=== PATIENT | female | born 1965 | race Caucasian/White ===

== ENCOUNTER → 2016-10-10 | Outpatient (CLI) | payer OTHER ==
--- NOTE | 2016-10-10 10:27 | XR ---
EXAMINATION TYPE: XR chest 2V DATE OF EXAM: 10/10/2016 CLINICAL HISTORY: Asthma and chest tightness. TECHNIQUE: Frontal and lateral views of the chest are obtained. COMPARISON: None FINDINGS: There is no focal air space opacity, pleural effusion, or pneumothorax seen. The cardiac silhouette size is within normal limits. The osseous structures are intact. IMPRESSION: No acute cardiopulmonary process. No significant change from prior.
== END | disposition home or self-care (01) ==
LOC: RADXRMAIN 10:02
PROVIDERS: ATTEND Internal Medicine Infectious Disease
DX: J44.9 Chronic obstructive pulmonary disease, unspecified (principal)
CPT/HCPCS: 71020

== ENCOUNTER 2017-05-27 11:39 | Day surgery (SDC) | payer OTHER ==
[2017-05-25 09:26] VITALS: BMI 22.3
[~2017-05-27 11:39] MED LIST: HYDROmorphone 0.5 MG/0.5 ML SYRINGE IVP PRN; LACTATED RINGERS 1,000 ML IV SCH; ONDANSETRON 4 MG/2 ML VIAL IVP PRN; Pre Op ABX Message 1 EACH MISC MISCELLANE ONE
[2017-05-27 12:07] VITALS: TEMP 98.2
[2017-05-27] MEDS ORDERED: LIDOCAINE 1% 20 ML VIAL (10MG/ML) FOR IV START INTRADERMA ONE (12:15)
[2017-05-27] MEDS ORDERED: ONDANSETRON 4 MG/2 ML VIAL ONE ×2 (12:18→12:19)
[2017-05-27] MEDS ORDERED: MIDAZOLAM 2 MG/2 ML VIAL ONE ×2 (12:47→13:17)
[2017-05-27] MEDS ORDERED: MIDAZOLAM 2 MG/2 ML VIAL IVP ONE (12:50)
[2017-05-27] MEDS ORDERED: HYDROCORTISONE SUCCINATE 100 MG/2 ML VIAL IVP ONE (12:54)
[2017-05-27] MEDS ORDERED: diphenhydrAMINE 50 MG/ML 1 ML VIAL ONE (13:17)
[2017-05-27] MEDS ORDERED: LIDOCAINE 1% INJ 10MG/ML (20 ML MDV) ONE (13:17)
[2017-05-27] MEDS ORDERED: PROPOFOL 10 MG/ML 20 ML VIAL IV ONE (13:17)
[2017-05-27] MEDS ORDERED: fentaNYL (PF) 50 MCG/ML 2 ML AMP ONE (13:17)
[2017-05-27] MEDS ORDERED: ceFAZolin 1,000 MG VIAL IVPB ONE (13:29)
[2017-05-27] MEDS ORDERED: LIDOCAINE 1% INJ 10MG/ML (20 ML MDV) SQ ONE ×2 (13:35→13:57)
[2017-05-27 15:11] VITALS: BP 117/62; PULSE 85; RESP 18
--- NOTE | 2017-05-27 15:57 | FL ---
Fluoroscopy HISTORY: Port-A-Cath placement 24 seconds fluoroscopy time supplied to the referring clinician. 1 intraoperative C-arm image docume nts the procedure. See dictated report from surgery.
--- NOTE | 2017-05-27 16:28 | P.PCN ---
Date of Procedure: 05/27/17 Preoperative Diagnosis: Immune deficiency requiring frequent blood draws and infusions Postoperative Diagnosis: Same Procedure(s) Performed: Insertion of Port-A-Cath Anesthesia: MAC Surgeon: Jeremy Pearson Estimated Blood Loss (ml): 10 Pathology: none sent Condition: stable Disposition: PACU Indications for Procedure: The patient has an acquired immune deficiency and requires frequent blood draws and infusion therapy. Operative Findings: There were no significant abnormalities on placing the Port-A-Cath Description of Procedure: With the patient spine position, under benefit of IV sedation, we prepped and draped in standard fashion. We anesthetized 1% lidocaine. We accessed the right internal jugular using ultrasound guidance. We then tunneled the catheter for the port from an incision on the anterior right chest wall to a stab wound at the puncture site for the jugular. A dilator and sheath were placed over the guidewire in standard Seldinger fashion. The guidewire and dilator were removed. We placed the catheter through the sheath and removed the sheath. We positioned the catheter with its tip at this. Vena cava at the level of the upper right atrium. We had already made a pocket for the reservoir beneath her incision. We attached the reservoir to the catheter and secured the reservoir in the pocket with silk suture. There was good blood return and it was charged with a standard heparin solution. The incision was closed with Vicryl. Sterile dressings were applied. The patient tolerated the procedure well and was taken recovery area in stable condition.
== END 2017-05-27 15:57 | disposition home or self-care (01) ==
LOC: OR 11:39
PROVIDERS: ATTEND Thoracic Surgery (Cardiothoracic Vascular Surgery)
DX: D83.9 Common variable immunodeficiency, unspecified (principal); M79.7 Fibromyalgia; F90.1 Attention-deficit hyperactivity disorder, predominantly hyperactive type; F41.9 Anxiety disorder, unspecified; F32.9 Major depressive disorder, single episode, unspecified; M19.90 Unspecified osteoarthritis, unspecified site; K21.9 Gastro-esophageal reflux disease without esophagitis; J45.909 Unspecified asthma, uncomplicated; Z88.1 Allergy status to other antibiotic agents; Z88.6 Allergy status to analgesic agent; F17.210 Nicotine dependence, cigarettes, uncomplicated; Z79.1 Long term (current) use of non-steroidal anti-inflammatories (NSAID); Z79.51 Long term (current) use of inhaled steroids; Z79.899 Other long term (current) drug therapy
CPT/HCPCS: 77001; 36561; C1788; J2250; J1200; J1720; J2405; J0690; J2001; J3010; J2704

== ENCOUNTER 2018-01-16 18:41 | Observation (INO) | payer OTHER ==
[2018-01-16] MEDS ORDERED: SODIUM CHLORIDE 0.9% 500 ML 500 ML IV STA (19:13)
[2018-01-16] MEDS ORDERED: ASPIRIN 81 MG PO STA (19:13)
--- NOTE | 2018-01-16 19:17 | ED ---
Chest Pain HPI - General Chief Complaint: Chest Pain Stated Complaint: CHEST PAIN Time Seen by Provider: 01/16/18 18:52 Source: patient Mode of arrival: ambulatory Limitations: no limitations - History of Present Illness Initial Comments: Patient is a 52-year-old female presenting for chest pressure. She states that she has no past medical history of cardiac disease and that for the last 1.5 weeks, she has been having this constant chest pressure which does not radiate. She saw her family doctor and was told that it was likely secondary to GERD. She admits to some cough but no fevers or chills and states that she had infusion of IVIG on Thursday for CVID but denies any other infectious symptoms. She denies any abdominal pain, nausea/vomiting/diarrhea. - Related Data Home Medications Medication Instructions Recorded Confirmed Acetaminophen [Tylenol] 1,000 mg PO Q4-6H PRN 03/07/14 05/27/17 Albuterol Sulfate [Ventolin HFA] 1 - 2 puff INHALATION Q4-6H PRN 03/07/14 Fluticasone Propionate [Flovent 2 puff INHALATION HS 03/07/14 05/27/17 Hfa 220MCG] Naproxen Sodium [Aleve] 220 mg PO Q12HR PRN 04/12/14 05/25/17 ALPRAZolam [Xanax] 0.25 mg PO DAILY PRN 01/06/17 05/27/17 Cyanocobalamin [Vitamin B-12 1,000 mcg SQ Q14D 01/06/17 05/25/17 Injection] Dextroamphetamine/Amphetamine 10 mg PO DAILY PRN 01/06/17 05/27/17 [Adderall] Immune Globulin (Flebogamma) 0 gm IV Q30D 01/06/17 05/27/17 [Flebogamma Dif 10%] Lansoprazole [Prevacid] 30 mg PO QAM 01/06/17 05/25/17 Fluticasone Nasal [place] [Flonase 2 sprays INTRANASAL BID PRN 05/27/17 05/27/17 Nasal [place]] Allergies Allergy/AdvReac Type Severity Reaction Status Date / Time aspirin AdvReac stomach Verified 01/16/18 18:48 upset nitrofurantoin AdvReac Nausea & Verified 01/16/18 18:48 [From Macrobid] Vomiting nitrofurantoin AdvReac Nausea & Verified 01/16/18 18:48 macrocrystalline Vomiting [From Macrobid] Review of Systems ROS Statement: Those systems with pertinent positive or pertinent negative responses have been documented in the HPI. Constitutional: Negative for chills, fatigue and fever. HENT: Negative for congestion. Respiratory: Negative for chest tightness, and wheezing. Negative for cough. Positive for shortness of breath Cardiovascular: Negative for chest pain and palpitations. Positive for chest pressure Gastrointestinal: Negative for abdominal pain. Negative for abdominal distention , diarrhea, nausea and vomiting. Genitourinary: Negative for dysuria. Musculoskeletal: Negative for back pain, neck pain and neck stiffness. Skin: Negative for color change. Neurological: Negative for dizziness, speech difficulty, weakness and light- headedness. Psychiatric/Behavioral: Negative for agitation and confusion. Negative for anxiety ROS Other: All systems not noted in ROS Statement are negative. EKG Findings - EKG Comments: EKG Findings:: EKG shows sinus tachycardia with a rate of 117, SD interval 132, QRS 78, QTC 446. There are no significant ST depressions or elevations. Past Medical History Past Medical History: Asthma Additional Past Medical History / Comment(s): sensitiy between ribs and reflux, IBS,ALLERGIES, HEADACHES. FREQUENT SORES IN HER MOUTH., STATES PAIN IN NECK AND FEET,Common Variable Immune Deficiency,steroids Dec 2016 History of Any Multi-Drug Resistant Organisms: None Reported Past Surgical History: Hysterectomy, Tubal Ligation Additional Past Surgical History / Comment(s): SINUS SURG X2 , EGD , COLONOSCOPY ,goldie cataracts Past Anesthesia/Blood Transfusion Reactions: Motion Sickness Past Psychological History: ADD/ADHD, Anxiety, Depression Smoking Status: Current every day smoker Past Alcohol Use History: Occasional Past Drug Use History: None Reported - Past Family History Brother(s) Family Medical History: Cancer Additional Family Medical History / Comment(s): lung small cell Father Family Medical History: Vascular Disorder General Exam - General Exam Comments Initial Comments: Constitutional: Pt is oriented to person, place, and time. Pt appears well- developed and well-nourished. No distress. HENT: Head: Normocephalic and atraumatic. Eyes: EOM are normal. Neck: Normal range of motion. Neck supple. Cardiovascular: Tachycardia present, regular rhythm, S1 normal, S2 normal and normal heart sounds. Exam reveals no gallop and no friction rub. No murmur heard. Pulmonary/Chest: Effort normal and breath sounds normal. No tachypnea and no bradypnea. No respiratory distress. No wheezes or rales noted. Abdominal: Soft. Bowel sounds are normal. Pt exhibits no shifting dullness, no distension, no pulsatile liver, no fluid wave, no abdominal bruit and no ascites. There is no tenderness. There is no rigidity, no rebound, no guarding, no tenderness at McBurney's point and negative Sims's sign. Musculoskeletal: Normal range of motion. Neurological: Pt is alert and oriented to person, place, and time. No cranial nerve deficit. Skin: Skin is warm and dry. No rash noted. Pt is not diaphoretic. No erythema. No pallor. Psychiatric: Pt has a normal mood and affect. Pt behavior is normal. Thought content normal. Limitations: no limitations Course Vital Signs 01/16/18 01/16/18 01/16/18 18:45 19:26 19:36 Temperature 98.7 F Pulse Rate 150 H 120 H 120 H Respiratory 22 16 Rate Blood Pressure 153/91 132/70 O2 Sat by Pulse 99 99 Oximetry 01/16/18 01/16/18 20:34 21:35 Temperature Pulse Rate 100 92 Respiratory 18 16 Rate Blood Pressure 121/61 121/76 O2 Sat by Pulse 98 98 Oximetry Chest Pain MDM - MDM Laboratory studies showed that a letter lites were relatively within normal limits and there is no abnormal hemoglobin levels. Cardiac evaluation showed the troponin was negative and BNP also was not elevated. Because the patient was tachycardic upon evaluation, CT PE study was completed and negative for PE. However, the patient has significant risk factors including hypertension, smoking, hyperlipidemia and therefore it was felt that it was appropriate that the patient be placed in observation for evaluation and further treatment.Explained all labs and diagnostic test results and that we will admit patient to hospital. Pt is agreeable to plan and case has been discussed with Dr. Peterson and they agree to accept the pt. Disposition Clinical Impression: Chest pain, Tachycardia Disposition: ADMITTED IP TO THIS HOSP Condition: Good Instructions: Chest Pain (ED) Referrals: Polo Rico MD [Primary Care Provider] - 1-2 days Decision to Admit Reason: Admit from EC Decision Date: 01/16/18 Decision Time: 22:02
[2018-01-16 19:47] LABS: Anisocytosis Slight; Basophils % (A) 1 %; Eosinophils # (A) 0.1 k/uL (0-0.7); Eosinophils % (A) 2 %; HGB 12.1 gm/dL (11.4-16.0); Lymphocytes # (A) 1.8 k/uL (1.0-4.8); Lymphocytes % (A) 42 %; MCH 27.3 pg (25.0-35.0); MCHC 32.7 g/dL (31.0-37.0); MCV 83.6 fL (80.0-100.0); Mean Platelet Volume 6.5; Monocytes # (A) 0.2 k/uL (0-1.0); Monocytes % (A) 6 %; Neutrophils # (A) 2.1 k/uL (1.3-7.7); Neutrophils % (A) 48 %; Platelet Count 318 k/uL (150-450); RBC 4.43 m/uL (3.80-5.40); RDW 16.8 % (11.5-15.5); WBC 4.3 k/uL (3.8-10.6)
--- NOTE | 2018-01-16 19:53 | XR ---
EXAMINATION TYPE: XR chest 2V DATE OF EXAM: 01/16/2018 COMPARISON: Chest radiograph 10/10/2016 HISTORY: Dyspnea and chest pain TECHNIQUE: Frontal and lateral views of the chest are obtained. FINDINGS: There is no focal air space opacity, pleural effusion, or pneumothorax seen. The cardiac silhouette size is within normal limits. Right internal jugular vein port is identified with the ti p projecting at the SVC right atrial junction The osseous structures are intact. IMPRESSION: 1. No acute cardiopulmonary process. 2. Appropriate position right IJ port.
[2018-01-16 19:59] LABS: Partial Thromboplastin Time 22.2 sec (22.0-30.0); Prothrombin Time 9.5 sec (9.0-12.0)
[2018-01-16 20:03] LABS: ALT 27 U/L (9-52); AST 32 U/L (14-36); Albumin 4.7 g/dL (3.5-5.0); Alkaline Phosphatase 74 U/L (38-126); Anion Gap 11 mmol/L; Blood Urea Nitrogen 6 mg/dL (7-17); Calcium 10.2 mg/dL (8.4-10.2); Carbon Dioxide 22 mmol/L (22-30); Chloride 106 mmol/L (98-107); Glucose 104 mg/dL (74-99); Sodium 139 mmol/L (137-145); Total Bilirubin 0.7 mg/dL (0.2-1.3); Total Protein 8.4 g/dL (6.3-8.2)
--- NOTE | 2018-01-16 20:15 | CT ---
EXAMINATION TYPE: CT chest angio for PE DATE OF EXAM: 01/16/2018 COMPARISON: Chest radiograph 10/10/2016 HISTORY: chest pain and tightness, SOB CT DLP: 181.9 mGycm. Automated Exposure Control for Dose Reduction was Utilized. CONTRAST: CTA scan of the thorax is performed with IV Contrast, patient injected with 73 mL of Isovue 370, pulm onary embolism protocol. MIP Images are created on CT scanner and reviewed. FINDINGS: LUNGS: The lungs are hyperinflated and hyperlucent but grossly clear. No concerning parenchymal mass or nodule identified. There is no pleural effusion or pneumothorax seen. The tracheobronchial tree is patent. MEDIASTINUM: There is satisfactory enhancement of the pulmonary artery and its branches, there is no CT evidence for pulmonary embolism. There are no greater than 1 cm hilar or mediastinal lymph nodes. No cardiomegaly or pericardial effusion is seen. Ascending and descending thoracic aorta within no rmal limits. OTHER: No additional significant abnormality is seen. IMPRESSION: 1. No pulmonary artery embolism. 2. Emphysematous changes.
[2018-01-16] MEDS ORDERED: NALOXONE 0.4 MG/ML 1 ML VIAL IV PRN (22:06)
[2018-01-16 23:00] VITALS: BMI 21.1
[2018-01-16] MEDS ORDERED: ACETAMINOPHEN TAB 325 MG TAB PO PRN (23:52)
[2018-01-17] MEDS: METOPROLOL TARTRATE 50 MG TAB PO SCH ×2 (00:22→10:00)
[2018-01-17] MEDS: SIMETHICONE 80 MG CHEWABLE PO PRN ×2 (00:45→09:12)
[2018-01-17] MEDS ORDERED: ACETAMINOPHEN TAB 500 MG TAB PO PRN (09:42)
[2018-01-17] MEDS ORDERED: METOPROLOL SUCCINATE (ER) 25 MG TAB.ER.24H PO SCH (09:45)
--- NOTE | 2018-01-17 12:08 | DS ---
DISCHARGE SUMMARY ATTENDING PHYSICIAN: Dr. Alise Peterson. DATE OF ADMISSION: 01/16/2018. DATE OF DISCHARGE: 01/17/2018. PRINCIPAL DIAGNOSES: 1. Atypical chest pain. 2. Tachycardia. 3. Chronic anxiety disorder. 4. Fibromyalgia. 5. Tobacco dependency. 6. History of mild intermittent bronchial asthma. HISTORY OF PRESENT ILLNESS: This 52-year-old was admitted to the hospital with complaints of chest pain for the past at least about 2 weeks. The patient has been seen in the outpatient by her physician. The patient has had similar symptoms in the past and had been seen by the bobbin hauler. He had recommended medications, which she has not been taking. The patient also has a history of fibromyalgia and chronic anxiety. She does feel that the symptoms are probably more related to her anxiety. Advised to address anxiety with her therapist as well as a primary care physician. The patient does follow with Dr. Moreno for an immunoglobulin infusions for chronic variable immunodeficiency. The patient's general condition post hospitalization remained stable. Cardiac rhythm remained sinus with good rate control. She refused to take any beta denice, which was advised. She states she is ALLERGIC TO ASPIRIN. The patient having remained stable with two negative troponins and no further symptoms and will be discharged home to be followed up on outpatient. DISCHARGE MEDICATIONS: Include: metoprolol succinate 25 mg daily, Albuterol sulfate p.r.n. 2 puffs q.i.d., Flovent 220 two puffs at bedtime, Tylenol 1000 mg q.4 p.r.n., Aleve 220 mg p.o. q.12, Adderall 10 mg as prior to admission. Xanax as prior to admission which is quarter pill as needed. Discussed with patient that this is not an appropriate medications and to continue that dosing. Xanax 0.25 mg p.r.n. b.i.d. Prevacid 30 mg b.i.d. Continue with vitamin B12 injections. Flonase. The patient to continue with her gamma infusions. The patient condition stable at the time of discharge. Patient counseled regarding smoking and importance of quitting smoking and alcohol. MMODL / IJN: [id number] /
--- NOTE | 2018-01-17 12:08 | HP ---
HISTORY AND PHYSICAL ATTENDING PHYSICIAN: Dr. Violette Peterson for Dr. Rico. CHIEF COMPLAINT: Chest pain. HISTORY OF PRESENT ILLNESS: A 52-year-old female presents to the hospital with complaint of chest pain for the past 2 weeks. The pain is off and on. Describes it as a tightness across the chest. It is not associated with any shortness of breath or diaphoresis. She does have palpitations off and on. This is a chronic issue. She says she normally her heart rate runs about 90 and at times it does go rapid. She has seen a first aid nurse about a year ago. The patient was prescribed medications for the tachycardia, but she has not taken any of those medications. The patient has associated history of chronic anxiety, alcohol periodically, and smoking. No history of any major cardiac events in the past. Patient has history of bronchial asthma, fibromyalgia and chronic anxiety. The patient has a history of chronic variable immune deficiency. The patient receives IVIG on a regular basis as an outpatient. PAST MEDICAL HISTORY: As mentioned above, history of chronic variable immune deficiency, bronchial asthma, chronic anxiety. PAST SURGICAL HISTORY: Total hysterectomy, tubal ligation, Port-A-Cath placement. PERSONAL HISTORY: Patient is a smoker off and on. She has back smoking for the past few months, at least half-pack a day. Alcohol periodically. ALLERGIES: ASPIRIN, NITROFURANTOIN. MEDICATIONS: 1. Naproxen. 2. Prevacid 30 mg b.i.d. 3. Immunoglobulin 10 g IV every month, 2 puffs at bedtime. 4. Flonase nasal spray 2 puffs b.i.d. p.r.n. basis. 5. Adderall 10 mg quarter tablet p.r.n. 6. Vitamin B12 injection every 2 weeks. 7. Albuterol p.r.n. inhaler. 8. Tylenol. 9. Xanax 0.25 mg p.r.n. SOCIAL HISTORY: , lives with spouse. FAMILY HISTORY: Noncontributory. REVIEW OF SYSTEMS: NEURO: Denies any headaches or dizziness. No double vision or blurred vision. No symptoms of TIA syncope or seizures. PSYCH: History of chronic anxiety. CARDIAC: Denies chest pain, angina, palpitations. RESPIRATORY: Denies shortness of breath, cough, hemoptysis. GI: Denies any nausea, vomiting, abdominal pain, diarrhea, constipation, hematochezia, melena. : No symptoms of dysuria, hematuria, urgency, frequency. EXTREMITIES: No pain or edema. CONSTITUTIONAL: No fevers or chills. PHYSICAL EXAMINATION: Pleasant female present. No distress. VITAL SIGNS: Temperature 98, pulse 85, respirations 18, blood pressure 106/60, pulse ox 98% on room air. HEENT: Normocephalic. NECK: Supple. No JVD. CHEST: Clear to auscultation and percussion. CARDIAC: Normal S1, S2 with no gallops, murmurs, rubs. ABDOMEN: Soft bowel sounds present. EXTREMITIES: No edema. Good pulses both upper and lower extremities. NEUROLOGIC: Awake, alert, oriented x3 with well-coordinated movements. LABORATORY ASSESSMENT: Normal CBC, PT, INR, electrolytes. Random glucose of 104, total protein 8.4, albumin 4.7. Troponin is negative x2. EKGs reveal sinus tachycardia, rate 117. CT scan of the chest did not reveal any evidence of PE. ASSESSMENT: 1. Chest pain, atypical. 2. History of mild intermittent bronchial asthma. 3. Chronic anxiety disorder. 4. Fibromyalgia. PLAN: The patient is admitted for observation as the patient was tachycardic when she came to the hospital. Despite a significant tachycardia, patient has had no elevation of troponins, which would indicate the patient's chest pain is less likely to be of cardiac origin. The patient is recommended follow up with first aid nurse and primary care physician. MMODL / KERRYN: [id number] /
[2018-01-17 12:14] VITALS: BP 97/66; PULSE 84; RESP 16; TEMP 98.6
== END 2018-01-17 12:25 | disposition home or self-care (01) ==
LOC: EC 18:41 → 1SOBS 22:04
PROVIDERS: ADMIT Internal Medicine; ATTEND Internal Medicine
DX: R07.89 Other chest pain (principal); R00.0 Tachycardia, unspecified; R00.2 Palpitations; R05 Cough; F41.9 Anxiety disorder, unspecified; M79.7 Fibromyalgia; I10 Essential (primary) hypertension; F17.210 Nicotine dependence, cigarettes, uncomplicated; J45.20 Mild intermittent asthma, uncomplicated; K21.9 Gastro-esophageal reflux disease without esophagitis; D83.9 Common variable immunodeficiency, unspecified; F32.9 Major depressive disorder, single episode, unspecified; F90.9 Attention-deficit hyperactivity disorder, unspecified type; Z79.51 Long term (current) use of inhaled steroids; Z79.899 Other long term (current) drug therapy; Z88.1 Allergy status to other antibiotic agents; Z88.6 Allergy status to analgesic agent; Z80.1 Family history of malignant neoplasm of trachea, bronchus and lung; Z82.49 Family history of ischemic heart disease and other diseases of the circulatory system
CPT/HCPCS: 96360; 99285; 36415; 93005; 83880; 80053; 83735; 84484 ×2; 85025; 85610; 85730; 71046; 71275; G0378 ×2; Q9967

== ENCOUNTER → 2018-10-27 | Outpatient (CLI) | payer OTHER ==
--- NOTE | 2018-10-28 11:39 | MM ---
Reason for exam: screening (asymptomatic). Last mammogram was performed 2 years and 8 months ago. History: Patient is postmenopausal. Family history of breast cancer in paternal grandmother and breast cancer in maternal grandmother. Benign stereotactic core biopsy of the right breast, November 08, 2003. Core biopsy of the right breast. Took hormonal contraceptives for 3 years beginning at age 16. Physical Findings: A clinical breast exam by your physician is recommended on an annual basis and results should be correlated with mammographic findings. MG 3D Screening Mammo W/Cad Bilateral CC and MLO view(s) were taken. Prior study comparison: February 21, 2016, bilateral MG 3d screening mammo w/cad. October 01, 2012, bilateral digital screening mammo w/CAD. The breast tissue is heterogeneously dense. This may lower the sensitivity of mammography. There are benign appearing round calcifications in the left breast. Previous mammotome biopsy in the right breast. Right axillary port partially imaged. ASSESSMENT: Benign, BI-RAD 2 RECOMMENDATION: Routine screening mammogram of both breasts in 1 year.
== END | disposition home or self-care (01) ==
LOC: RADMAMWWP 13:06
PROVIDERS: ATTEND Obstetrics & Gynecology
DX: Z12.31 Encounter for screening mammogram for malignant neoplasm of breast (principal)
CPT/HCPCS: 77063; 77067

== ENCOUNTER → 2018-11-02 | Outpatient (CLI) | payer OTHER ==
--- NOTE | 2018-11-03 20:51 | BD ---
EXAMINATION TYPE: Axial Bone Density DATE OF EXAM: 11/02/2018 COMPARISON: NONE CLINICAL HISTORY: 53 YR OLD FEMALE....ICD-10 CODE: Z78.0 POST MENOPAUSAL Height: 61 Weight: 113 FRAX RISK QUESTIONS: Family History (Parent hip fracture): YES Glucocorticoids (More than 3mos): YES (Ex: prednisone, prednisolone, methylprednisolone, dexamethasone, and hydrocortisone). Current Tobacco Use: YES RISK FACTORS HISTORY OF: Family History of Osteoporosis: YES HER FATHER WITH SPINAL FXS Active: YES Diet low in dairy products/other sources of calcium: YES Postmenopausal woman: PARTIAL HYST, HORMONAL REBECCA AT ABOUT 48 MEDICATIONS: Prednisone or other steroids: VENTOLIN, FLOVENT, PREDNISONE PRN, FOR ASTHMA, FOR LIFE Thyroid Medications: HAS LOW THYROID, BUT NO MEDS FOR IT Additional Medications: HUMAN IMMUNOGLOBULIN, BP MEDS, XANAX PRN, CYMBALTA, REFLUX MEDS, ADDERALL, Additional History: CVID, FIBROMYALGIA, ASTHMA, EXAM MEASUREMENTS: Bone mineral densitometry was performed using the MuciMed System. Bone mineral density as measured about the Lumbar spine is: ----- L1-L4(G/cm2): 1.037 T Score Values are as follows: ----- L1: -1.2 ----- L2: -1.6 ----- L3: -1.3 ----- L4: -1.0 ----- L1-L4: -1.2 Bone mineral density BASELINE DEXA STUDY Bone mineral density about the R hip (g/cm2): 0.855 Bone mineral density about the L hip (g/cm2): 0.903 T Score values are as follows: -----R Neck: -1.4 -----L Neck: -1.2 -----R Total: -1.2 -----L Total: -0.8 Bone mineral density BASELINE DEXA STUDY FRAX%s: THERE IS A 18.5% CHANCE FOR A MAJOR OSTEOPOROTIC FX AND A 1.6% FOR HIP.....PROBABILITY FOR FX IN 10 YRS TIME IMPRESSION: Osteopenia (T Score between -2.5 and -1). There is slightly increased risk of fracture and the patient may be considered for treatment. Re-Screen 2-5 years. NOTE: T-SCORE=SD OF THE YOUNG ADULT MEAN.
== END | disposition home or self-care (01) ==
LOC: RADBDWWP 16:21
PROVIDERS: ATTEND Internal Medicine
DX: M85.80 Other specified disorders of bone density and structure, unspecified site (principal); Z78.0 Asymptomatic menopausal state
CPT/HCPCS: 77080

== ENCOUNTER 2019-01-05 08:59 | Day surgery (SDC) | payer OTHER ==
[2019-01-03 13:35] VITALS: BMI 21.1
[~2019-01-05 08:59] MED LIST changes: -HYDROmorphone 0.5 MG/0.5 ML SYRINGE IVP PRN; +LIDOCAINE 1% 20 ML VIAL (10MG/ML) FOR IV START INTRADERMA PRN; -ONDANSETRON 4 MG/2 ML VIAL IVP PRN; -Pre Op ABX Message 1 EACH MISC MISCELLANE ONE
[2019-01-05 09:37] VITALS: RESP 16; TEMP 97.8
[2019-01-05] MEDS ORDERED: PROPOFOL 10 MG/ML 20 ML VIAL IV ONE (10:07)
--- NOTE | 2019-01-05 10:25 | P.PCN ---
Date of Procedure: 01/05/19 Procedure(s) Performed: Brief history: Patient is a pleasant 53-year-old white female scheduled for an elective upper endoscopy as well as colonoscopy as a part of evaluation of GERD/and deficiency anemia. Procedure performed: Esophagogastroduodenoscopy with biopsy Colonoscopy with snare polypectomy. Preoperative diagnosis: GERD/iron deficiency anemia Anesthesia: MAC Procedure: After informed consent was obtained from the patient was brought into the endoscopy unit and IV sedation was administered by anesthesia under continuous monitoring. Initially upper endoscopy was done. The Olympus GF 160 video endoscope was inserted inserted into the mouth and esophagus intubated without any difficulty and was gradually advanced into the stomach and duodenum and carefully examined. The bulb and second part of the duodenum appeared normal. The scope was then withdrawn into the stomach adequately insufflated with air and upon careful examination the antrum and body, cardia and fundus appeared normal. The scope was then withdrawn into the esophagus. The GE junction was located at 40 cm to the incisors. It appeared regular with no erythema erosions or ulcerations. Rest of the esophagus appeared normal. Patient tolerated the procedure well. At this time the patient continued to remain sedation. Initial digital rectal examination was normal. Olympus CF 160 video colonoscope was then inserted into the rectum and gradually advanced to the cecum without any difficulty. Careful examination was performed as the scope was gradually being withdrawn. The prep was excellent. The cecum, ascending colon, appeared normal. In the transverse colon there was a 5 mm sessile polyp that was removed by snare polypectomy. Rest of the transverse colon, descending colon, sigmoid colon and rectum appeared normal. Retroflexion was performed in the rectum and no lesions were noted. Patient tolerated the procedure well. Impression: 1. Upper endoscopy revealed minimal antral gastritis 2.. Colonoscopy revealed a 5 mm sessile transverse colon polyp status post snare polypectomy Recommendations: Findings of this examination were discussed with the patient as well as her family. She was advised to follow with the biopsy results. If the biopsy shows an adenoma, she can have a repeat colonoscopy in 5 years.
[2019-01-05 10:43] VITALS: BP 133/76; PULSE 85
== END 2019-01-05 11:09 | disposition home or self-care (01) ==
LOC: ORWHC2ENDO 08:59
PROVIDERS: ATTEND Internal Medicine Gastroenterology
DX: K31.9 Disease of stomach and duodenum, unspecified (principal); D12.2 Benign neoplasm of ascending colon; D12.3 Benign neoplasm of transverse colon; K21.9 Gastro-esophageal reflux disease without esophagitis; D50.9 Iron deficiency anemia, unspecified; I47.1 Supraventricular tachycardia; Z98.51 Tubal ligation status; Z90.710 Acquired absence of both cervix and uterus; Z79.899 Other long term (current) drug therapy; Z88.6 Allergy status to analgesic agent; Z88.1 Allergy status to other antibiotic agents
CPT/HCPCS: 88305; 45385; 43239; J2704

== ENCOUNTER → 2019-01-20 | Outpatient (CLI) | payer OTHER ==
--- NOTE | 2019-01-20 18:51 | FL ---
EXAMINATION TYPE: FL small bowel follow through DATE OF EXAM: 01/20/2019 CLINICAL HISTORY: 53-year-old female iron deficiency anemia. Patient with history of CVID and negativ e recent EGD and colonoscopy. TECHNIQUE: A single contrast small bowel follow through is performed utilizing barium. Total fluoroscopy time: 1 minute 21 seconds. Total images: 24. COMPARISON: None FINDINGS: Systems Qa Analyst image of the abdomen shows no gross abnormality. There is nonobstructive bowel gas pattern with mild stool in the right side of the abdomen. The small bowel study shows normal transit to the colon in less than 120 minutes. There is a normal mucosal fold pattern throughout the majority of the small bowel. The terminal ileum was spotted and s hows tiny nodular filling defects. There is no evidence of any stricture. IMPRESSION: 1. Normal small bowel transit time of 2 hours. 2. Tiny nodular filling defects/nodular folds at the terminal ileum. Findings could reflect fecal ref lux across the ileocecal valve allowing for this mottled appearance. Alternatively, consideration can be given to lymphoid hyperplasia, IBD, and infectious ileitis. Further clinical correlation recommen ded. 3. The remainder of the small bowel has a normal appearance.
== END | disposition home or self-care (01) ==
LOC: RADFLMAIN 08:00
PROVIDERS: ATTEND Internal Medicine Gastroenterology
DX: K58.9 Irritable bowel syndrome, unspecified (principal); A09 Infectious gastroenteritis and colitis, unspecified; R59.0 Localized enlarged lymph nodes
CPT/HCPCS: 74250

== ENCOUNTER → 2019-05-20 | Outpatient (CLI) | payer OTHER ==
--- NOTE | 2019-05-20 16:50 | CT ---
EXAMINATION TYPE: CT abdomen pelvis w con DATE OF EXAM: 05/20/2019 COMPARISON: CT 01/06/2014 HISTORY: Anemia. CT DLP: 580 mGycm Automated exposure control for dose reduction was used. TECHNIQUE: Helical acquisition of images from the lung bases through the pelvis have been completed. CONTRAST: Performed with Oral Contrast and with IV Contrast, patient injected with 100ml mL of Isovue 300. FINDINGS: LUNG BASES: No significant abnormality is appreciated. AORTA: No significant abnormality is appreciated. LIVER/GB: No significant abnormality is appreciated. PANCREAS: No significant abnormality is seen. SPLEEN: No significant abnormality is seen. ADRENALS: No significant abnormality is seen. KIDNEYS: No significant abnormality is seen. REPRODUCTIVE ORGANS: Uterus is not seen, adnexal structures thought present along the pelvic sidewall s similar to prior. BOWEL: No significant abnormality is seen. Contrast has not coursed into the colon, has reached the cecum only FREE AIR: No Free Air visible. ASCITES: None visible. PELVIC ADENOPATHY: None visualized. RETROPERITONEAL ADENOPATHY: No Retroperitoneal Adenopathy visible. URINARY BLADDER: No significant abnormality is seen. OSSEOUS STRUCTURES: No significant abnormality is seen. IMPRESSION: POSTOP CHANGE. DIFFICULT TO EXCLUDE A MUCOSAL LESION WITHIN THE COLON.
== END | disposition home or self-care (01) ==
LOC: RADCTMAIN 13:47
PROVIDERS: ATTEND Internal Medicine Hematology & Oncology
DX: D50.9 Iron deficiency anemia, unspecified (principal); Z98.890 Other specified postprocedural states
CPT/HCPCS: 74177; Q9967

== ENCOUNTER → 2019-09-09 | Outpatient (CLI) | payer OTHER ==
--- NOTE | 2019-09-09 12:15 | CT ---
EXAMINATION TYPE: CT angio chest DATE OF EXAM: 09/09/2019 COMPARISON: None HISTORY: 54-year-old female Cough, short of breath, chest pains TECHNIQUE: Contiguous axial scanning of the chest performed with IV Contrast, patient injected with 1 00, wasted 41 mL of Isovue 370. Coronal/sagittal MIP reconstructions performed. CT DLP: 128 mGycm Automated exposure control for dose reduction was used. FINDINGS: Right anterior chest wall injection port with catheter tip is obscured by the dense contrast bolus. Heart normal size of pericardial effusion. No flattening of interventricular septum or reflux of cont rast into the hepatic veins. Scattered LAD and circumflex artery calcifications are demonstrated. Aorta normal caliber with conventional arch was a branching anatomy and mild atherosclerotic calcific ations at the great vessel origins. Borderline size 9 mm left tracheobronchial angle lymph node. No thoracic lymphadenopathy by CT size c riteria. Satisfactory opacification of the pulmonary arterial system. There is central linear filling defect within the right upper lobe are pulmonary artery, axial image 63 and coronal series 10 image 53 and 54. No other pulmonary emboli are identified. Biapical pleural-parenchymal scarring. Minimal emphysematous change at the apices and a few scattered emphysematous cysts elsewhere in the lungs. No consolidation or pleural effusion. Visualized upper abdomen shows no gross abnormality. Bones: Moderate degenerative disc disease midthoracic spine. IMPRESSION: 1. LINEAR CENTRAL FILLING DEFECT WITHIN THE RIGHT UPPER LOBAR PULMONARY ARTERY SUGGESTIVE OF A SOLITA RY PULMONARY EMBOLUS. NO RIGHT HEART STRAIN. 2. COPD WITH MILD EMPHYSEMA. The air quality technician will call Dr. Julio's office regarding the critical findings immediately following this d ictation.
== END | disposition home or self-care (01) ==
LOC: RADCTMAIN 11:18
PROVIDERS: ATTEND Family Medicine
DX: J43.9 Emphysema, unspecified (principal); I28.8 Other diseases of pulmonary vessels; R07.9 Chest pain, unspecified; R06.02 Shortness of breath
CPT/HCPCS: 71275; Q9967

== ENCOUNTER → 2019-09-12 | Outpatient (CLI) | payer OTHER | END | disposition home or self-care (01) | LOC: LABWHC1 06:47 | PROVIDERS: ATTEND Family Medicine | DX: R05 Cough (principal); R06.02 Shortness of breath ==

== ENCOUNTER → 2019-10-06 | Outpatient (CLI) | payer OTHER ==
--- NOTE | 2019-10-06 09:19 | US ---
EXAMINATION TYPE: US abdomen complete DATE OF EXAM: 10/06/2019 COMPARISON: CT 05/20/2019 CLINICAL HISTORY: R14.0 abd distention, R22.42 left leg swelling. EXAM MEASUREMENTS: Liver Length: 15.7 cm Gallbladder Wall: 0.1 cm CBD: 0.2 cm Spleen: 10.5 cm Right Kidney: 10.2 x 3.2 x 3.9 cm Left Kidney: 11.6 x 4.0 x 4.5 cm Pancreas: Obscured by bowel gas, visualized portions appear wnl Liver: wnl Gallbladder: wnl Evidence for sonographic Sims's sign: No CBD: wnl Spleen: wnl Right Kidney: No hydronephrosis or masses seen Left Kidney: No hydronephrosis or masses seen Upper IVC: wnl Abd Aorta: wnl There is no ascites. The liver is homogenous. The intrahepatic portion of the IVC and proximal abdominal aorta are within normal limits. There is no evidence of cholelithiasis. Common bile duct is unremarkable. The visu alized portions of the pancreas are homogenous. The spleen is unremarkable. Kidneys are symmetric a nd free of hydronephrosis, cortical medullary differentiation is maintained. No renal lesions are se en. IMPRESSION: No abnormality evident
--- NOTE | 2019-10-06 09:22 | US ---
EXAMINATION TYPE: US venous doppler duplex LE DATE OF EXAM: 10/06/2019 8:50 AM COMPARISON: NONE CLINICAL HISTORY: R14.0 abd distention, R22.42 left leg swelling. Pulmonary embolism, patient taking blood thinners SIDE PERFORMED: Bilateral TECHNIQUE: The lower extremity deep venous system is examined utilizing real time linear array sonog agueda with graded compression, doppler sonography and color-flow sonography. VESSELS IMAGED: External Iliac Vein (EIV) Common Femoral Vein Deep Femoral Vein Greater Saphenous Vein * Femoral Vein Popliteal Vein Small Saphenous Vein * Proximal Calf Veins (* superficial vessels) There is normal flow, compressibility, vascular waveforms Right Leg: Negative for DVT Left Leg: Negative for DVT IMPRESSION: No evident deep venous thrombosis at or above the knees..
== END | disposition home or self-care (01) ==
LOC: RADUSWWP 08:13
PROVIDERS: ATTEND Internal Medicine Hematology & Oncology
DX: R14.0 Abdominal distension (gaseous) (principal); R22.42 Localized swelling, mass and lump, left lower limb
CPT/HCPCS: 76700; 93970

== ENCOUNTER → 2019-10-31 | Outpatient (CLI) | payer OTHER ==
--- NOTE | 2019-10-31 12:29 | XR ---
EXAMINATION TYPE: XR chest 2V DATE OF EXAM: 10/31/2019 COMPARISON: 01/16/2018 HISTORY: 54-year-old female cough and wheezing. D50.9, D83.9, J45.909, R00.0 TECHNIQUE: Frontal and lateral views FINDINGS: The cardiomediastinal silhouette, aorta, and pulmonary vasculature are within normal limits. Mild hyp erinflation. No consolidation or pleural effusion. Right anterior chest wall injection port with cath eter tip at the lower SVC. IMPRESSION: COPD. No acute process seen.
== END | disposition home or self-care (01) ==
LOC: RADXRMAIN 12:05
PROVIDERS: ATTEND Nurse Practitioner Adult Health
DX: J44.9 Chronic obstructive pulmonary disease, unspecified (principal); D50.9 Iron deficiency anemia, unspecified; D83.9 Common variable immunodeficiency, unspecified
CPT/HCPCS: 71046

== ENCOUNTER 2019-11-06 20:48 | Emergency (ER) | payer OTHER ==
[2019-11-06 21:18] VITALS: BP 115/69; PULSE 95; RESP 18; TEMP 98.1
[2019-11-06] MEDS ORDERED: DIPH,PERTUS(ACELL)TETVAC-LF 0.5 ML VIAL IM ONE (21:45)
--- NOTE | 2019-11-06 22:07 | ED ---
General Adult HPI - General Chief complaint: Head Injury Stated complaint: Fall,Head injury Time Seen by Provider: 11/06/19 21:25 Source: patient, family Mode of arrival: ambulatory - History of Present Illness Initial comments: 54-year-old female currently taking Xarelto presents to the emergency room for chief complaint of head injury. Patient reports she was walking up some basement stairs. States her mother was walking ahead of her carrying a box of items. Patient reports that a heavy picture frame fell out of the box and hit her in the head. No loss of consciousness. Patient is a small laceration. Patient is not up-to-date on tetanus. Patient does report there is pain over the area of laceration. Patient has no other complaints at this time including shortness of breath, chest pain, abdominal pain, nausea or vomiting, headache, or visual changes. - Related Data Home Medications Medication Instructions Recorded Confirmed Albuterol Sulfate [Ventolin HFA] 1 - 2 puff INHALATION RT-Q4H PRN 03/07/14 01/05/19 Fluticasone Propionate [Flovent 2 puff INHALATION RT-HS 03/07/14 01/05/19 Hfa 220 mcg] Cyanocobalamin [Vitamin B-12 1,000 mcg SQ Q14D 01/06/17 01/05/19 Injection] Immune Globulin (Flebogamma) 10 gm IV Q30D 01/06/17 01/05/19 [Flebogamma Dif 10%] Lansoprazole [Prevacid] 30 mg PO BID 01/06/17 01/05/19 Fluticasone Nasal Mcloud [Flonase 2 sprays INTRANASAL BID PRN 05/27/17 01/05/19 Nasal Mcloud] Bobby/D3/Mag11/Zinc/Manager Community/Sheldon/Bor 1 each PO DAILY 01/03/19 01/05/19 [Caltrate 600+D Plus Tablet] Cholecalciferol (Vitamin D3) 2,000 unit PO DAILY 01/03/19 01/05/19 [Vitamin D3] Mv-Min/Vit C/Glut/Lysine/Hb124 1 each PO DAILY 01/03/19 01/05/19 [Airborne Effervescent Tablet] Previous Rx's Medication Instructions Recorded Metoprolol Succinate (ER) [Toprol 25 mg PO DAILY #30 tab.er.24h 01/17/18 XL] Allergies Allergy/AdvReac Type Severity Reaction Status Date / Time aspirin AdvReac stomach Verified 11/06/19 21:16 upset nitrofurantoin AdvReac Nausea & Verified 11/06/19 21:16 [From Macrobid] Vomiting nitrofurantoin AdvReac Nausea & Verified 11/06/19 21:16 macrocrystalline Vomiting [From Macrobid] Review of Systems ROS Statement: Those systems with pertinent positive or pertinent negative responses have been documented in the HPI. ROS Other: All systems not noted in ROS Statement are negative. Past Medical History Past Medical History: Asthma Additional Past Medical History / Comment(s): sensitiy between ribs and reflux,IBS,ALLERGIES, HEADACHES. FREQUENT SORES IN HER MOUTH., STATES PAIN IN NECK AND FEET,Common Variable Immune Deficiency,steroids Dec 2016 History of Any Multi-Drug Resistant Organisms: None Reported Past Surgical History: Hysterectomy, Tubal Ligation Additional Past Surgical History / Comment(s): SINUS SURG X2 , EGD , COLONOSCOPY,goldie cataracts Past Anesthesia/Blood Transfusion Reactions: Motion Sickness Past Psychological History: ADD/ADHD, Anxiety, Depression Past Alcohol Use History: Occasional Past Drug Use History: None Reported - Past Family History Brother(s) Family Medical History: Cancer Additional Family Medical History / Comment(s): lung small cell. cystic fibrosis Father Family Medical History: Vascular Disorder General Exam General appearance: alert, in no apparent distress Head exam: Present: normocephalic, normal inspection. Absent: atraumatic (Patient has a small one similar laceration noted to the right parietal bone.) Eye exam: Present: normal appearance, PERRL, EOMI. Absent: scleral icterus, conjunctival injection, periorbital swelling ENT exam: Present: normal exam, mucous membranes moist Neck exam: Present: normal inspection, full ROM. Absent: tenderness, meningismus, lymphadenopathy Respiratory exam: Present: normal lung sounds bilaterally. Absent: respiratory distress, wheezes, rales, rhonchi, stridor Cardiovascular Exam: Present: regular rate, normal rhythm, normal heart sounds. Absent: systolic murmur, diastolic murmur, rubs, gallop, clicks Neurological exam: Present: alert, oriented X3, normal gait, other (GCS 15) Course Vital Signs 11/06/19 21:14 Temperature 98.1 F Pulse Rate 95 Respiratory 18 Rate Blood Pressure 115/69 O2 Sat by Pulse 99 Oximetry Medical Decision Making - Medical Decision Making CT brain is negative for intracranial hemorrhage. Laceration was repaired using one staple. Patient was updated on tetanus. Follow-up is given. Return parameters given. Disposition Clinical Impression: Laceration of scalp Disposition: HOME SELF-CARE Condition: Good Instructions (If sedation given, give patient instructions): Laceration (ED), Staple Care (ED) Additional Instructions: Please return in 7-10 days for staple removal. Return if you have any other worsening symptoms such as confusion or vomiting. Otherwise follow-up with primary care in 1-2 days. Is patient prescribed a controlled substance at d/c from ED?: No Referrals: Radha Julio MD [Primary Care Provider] - 1-2 days Time of Disposition: 22:43
--- NOTE | 2019-11-06 22:32 | CT ---
EXAMINATION TYPE: CT brain wo con DATE OF EXAM: 11/06/2019 COMPARISON: None HISTORY: Right sided injury. CT DLP: 1118.4 mGycm Automated exposure control for dose reduction was used. Ventricles and sulci appear normal. There is no mass effect nor midline shift. There is no sign of in tracranial hemorrhage. The calvarium is intact. There is no evidence of cerebral edema. IMPRESSION: Negative unenhanced head CT scan.
[2019-11-06] MEDS ORDERED: ACET/COD 300 MG/30 MG STARTER PACK 6 TAB BTL PO STA (23:04)
--- NOTE | 2019-11-07 09:58 | CDI ---
Dear Everett ROSEC> Please do addendum for lengtn of laceration repair & procedure note for laceraion repaired, required Thank you, Sarahy Ybarra, Trim Setter If you have any questions, please contact Mat Linker at [phone] [facility]
== END 2019-11-06 23:00 | disposition home or self-care (01) ==
LOC: EC 20:48
DX: S01.01XA Laceration without foreign body of scalp, initial encounter (principal); J45.909 Unspecified asthma, uncomplicated; K58.9 Irritable bowel syndrome, unspecified; Z79.899 Other long term (current) drug therapy; Z79.51 Long term (current) use of inhaled steroids; Z88.1 Allergy status to other antibiotic agents; Z88.6 Allergy status to analgesic agent; Z23 Encounter for immunization; W22.8XXA Striking against or struck by other objects, initial encounter; Y93.01 Activity, walking, marching and hiking
CPT/HCPCS: 12001; 70450; 90471; 90715; 99283

== ENCOUNTER → 2020-02-01 | Outpatient (CLI) | payer OTHER | END | disposition home or self-care (01) | LOC: LABWHC1 16:02 | PROVIDERS: ATTEND Family Medicine | DX: J02.9 Acute pharyngitis, unspecified (principal); R51.9 Headache, unspecified | CPT/HCPCS: U0003; C9803 ==

== ENCOUNTER → 2020-02-22 | Outpatient (CLI) | payer OTHER ==
--- NOTE | 2020-02-22 14:25 | CT ---
EXAMINATION TYPE: CT angio chest DATE OF EXAM: 02/22/2020 2:00 PM COMPARISON: CTA chest September 09, [address] January 16, 2018 HISTORY: Follow up PE. No complaints at time of scan. Prior abnormal CT. CT DLP: 124.9 mGycm Automated exposure control for dose reduction was used. CONTRAST: CTA scan of the thorax is performed with IV Contrast, patient injected with 65 mL of Isovue 370, pulm onary embolism protocol. MIP images are created and reviewed. FINDINGS: LUNGS: Mild biapical pleural/parenchymal scarring redemonstrated. Additional mild left basilar linear scarring. No suspicious nodules or masses. No suspicious focal consolidation or groundglass opacity. No pleural effusion or pneumothorax. MEDIASTINUM: There is suboptimal study with near equal contrast in right and left heart system but t here is no CT evidence for pulmonary embolism on current study. Interval resolution of the central u pper lobe right pulmonary artery partial occlusive thrombus. Some artifact from adjacent densely opac ified SVC noted. There are no new greater than 1 cm hilar or mediastinal lymph nodes. Stable prominen t borderline enlarged left tracheobronchial lymph node axial image 56. No cardiomegaly or pericardia l effusion is seen. OTHER: Slight scoliotic curvature with mild multilevel spurring redemonstrated. Stable right interna l jugular Mediport catheter. IMPRESSION: No CT evidence for acute pulmonary embolism on current study.
== END | disposition home or self-care (01) ==
LOC: RADCTMAIN 13:11
PROVIDERS: ATTEND Family Medicine
DX: I26.99 Other pulmonary embolism without acute cor pulmonale (principal)
CPT/HCPCS: 71275; Q9967

== ENCOUNTER → 2020-04-25 | Outpatient (CLI) | payer OTHER ==
--- NOTE | 2020-04-25 11:22 | CT ---
EXAMINATION TYPE: CT angio chest DATE OF EXAM: 04/25/2020 10:28 AM COMPARISON: HISTORY: hemoptysis CT DLP: 112.1 mGycm Automated exposure control for dose reduction was used. CONTRAST: CTA scan of the thorax is performed with IV Contrast, patient injected with 68 mL of Isovue 370, pulm onary embolism protocol. . FINDINGS: LUNGS: There are multiple subpleural nodules measuring less than 5 mm too small to characterize. No c onsolidative pneumonia or pleural effusion. Areas of subsegmental consolidation most typical of atele ctasis. Biapical pleural thickening. MEDIASTINUM: There is satisfactory enhancement of the pulmonary artery and its branches, there is no CT evidence for pulmonary embolism. There are no greater than 1 cm hilar or mediastinal lymph nodes. No pericardial effusion is seen. OTHER: Hypertrophic and degenerative changes of the spine. Mediport catheter stable. IMPRESSION: 1. COPD with no CT evidence of pulmonary embolism. 2. Subsegmental areas of atelectasis favored over infiltrate. Multiple subpleural less than 5 mm nodu les are too small to characterize. Follow-up 6 month basis.
== END | disposition home or self-care (01) ==
LOC: RADCTMAIN 09:58
PROVIDERS: ATTEND Family Medicine
DX: J44.9 Chronic obstructive pulmonary disease, unspecified (principal); R91.8 Other nonspecific abnormal finding of lung field
CPT/HCPCS: 71275; Q9967

== ENCOUNTER → 2020-04-30 | Outpatient (CLI) | payer OTHER ==
--- NOTE | 2020-04-30 15:43 | FL ---
EXAMINATION TYPE: FL UGI air DATE OF EXAM: 04/30/2020 COMPARISON: None HISTORY: GERD TECHNIQUE: Double air-contrast technique is utilized to evaluate the upper gastrointestinal tract FINDINGS: Esophagus dilates normal caliber has normal contour to the gastroesophageal junction. Gastr oesophageal junction opens to normal caliber. Note is made of several episodes of gastroesophageal re flux during the examination. There is complete stripping the esophageal bolus the horizontal drinking position Fundus body and antrum of the stomach are well visualized. No intraluminal or extramural defects are evident. Barium readily empties into the duodenal cap and sweep. Ligament of Treitz is in normal posi tion. Proximal small bowel within the [id number]-[id number] is unremarkable. IMPRESSION: 1. Gastroesophageal reflux.
== END | disposition home or self-care (01) ==
LOC: RADUSWWP 09:45
PROVIDERS: ATTEND Family Medicine
DX: K21.9 Gastro-esophageal reflux disease without esophagitis (principal)
CPT/HCPCS: 74246

== ENCOUNTER → 2020-06-08 | Outpatient (CLI) | payer OTHER ==
[2020-06-08 21:26] LABS: Protein, Total 7.9 g/dL (6.2-8.2)
[2020-06-08 21:49] LABS: Folate, Serum 5.5 ng/mL
[2020-06-08 23:29] LABS: % Iron Saturation 36.59 (12.00-45.00); African American GFR (CKD) 95.5 (60.0-200.0); Albumin 5.3 g/dL (3.80-4.90); Albumin/Globulin Ratio 2.04 (1.60-3.17); Anion Gap 9.4 mmol/L (4.00-12.00); Calcium 9.9 mg/dL (8.7-10.3); Carbon Dioxide 28.6 mmol/L (21.6-31.8); Globulin 2.6 g/dL (1.6-3.3); Magnesium 2.2 mg/dL (1.5-2.4); Non-African American GFR(CKD) 82.4 (60.0-200.0); Potassium 4.3 mmol/L (3.5-5.5); Total Bilirubin 0.5 mg/dL (0.3-1.2); Total Protein 7.9 g/dL (6.2-8.2)
[2020-06-09 02:13] LABS: Anti-DNA, DS unit <1.0 IU/mL; Anti-Smith Ab Interp NEGATIVE (NEGATIVE); Cardiolipin Ab IgG Interp NEGATIVE (NEGATIVE); Cardiolipin Ab IgM Interp NEGATIVE (NEGATIVE); Cardiolipin IgA Antibody <0.5 U/mL; Cardiolipin IgM Antibody <0.2 U/mL; DNA Double-Stranded NEGATIVE (NEGATIVE)
== END ==
LOC: LABWHC1 13:24
PROVIDERS: ATTEND Internal Medicine Critical Care Medicine
DX: D68.69 Other thrombophilia (principal); G60.9 Hereditary and idiopathic neuropathy, unspecified; R51.9 Headache, unspecified; R53.83 Other fatigue; R42 Dizziness and giddiness; R41.82 Altered mental status, unspecified; R53.1 Weakness
CPT/HCPCS: 36415; 80053; 82306; 82746; 83540; 83550; 83615; 83735; 84165; 84443; 85301; 85303; 85306; 85613; 85730; 86038; 86147; 86225; 86235; 86431; 86618; 86644; 86645; 86664; 86665; 86850; 86900; 86901; 87040

== ENCOUNTER → 2020-07-25 | Outpatient (CLI) | payer OTHER ==
--- NOTE | 2020-07-25 12:21 | XR ---
EXAMINATION TYPE: XR abdomen 1V DATE OF EXAM: 07/25/2020 10:55 AM CLINICAL HISTORY: Patient had 4 in upper GI which was canceled. TECHNIQUE: Single supine KUB image of the abdomen is obtained. COMPARISON: None. FINDINGS: Nonspecific, nonobstructive bowel gas pattern. No evidence of free air on the upright study . Lung bases show minimal blunting suggestive of scarring or tiny pleural effusions. Mild degenerativ e changes of the lumbar spine. IMPRESSION: 1. Nonspecific, nonobstructive bowel gas pattern at the visualized portions. 2. Minimal blunting of the costophrenic angle suggestive of scarring or tiny pleural effusions. 3. Upper GI was canceled. The patient states no change in symptoms since prior upper GI or change in medications. Patient did not want to continue study at this time.
--- NOTE | 2020-07-25 14:47 | US ---
EXAMINATION TYPE: US abdomen complete DATE OF EXAM: 07/25/2020 COMPARISON: US, CT CLINICAL HISTORY: R10.84 Abd pain. Patient stated has GERD, nausea with or without food; EXAM MEASUREMENTS: Liver Length: 15.7 cm Gallbladder Wall: 0.2 cm CBD: 0.2 cm Spleen: 10.7 cm Right Kidney: 10.4 x 4.7 x 3.2 cm Left Kidney: 11.7 x 5.5 x 4.3 cm Pancreas: wnl Liver: wnl Gallbladder: wnl Evidence for sonographic Sims's sign: no CBD: wnl Spleen: wnl Right Kidney: wnl Left Kidney: wnl Upper IVC: wnl Abd Aorta: hyperechoic, atherosclerotic plaque is noted intermittently throughout aorta. No evidence of aneurysm. The liver is homogenous. No cholelithiasis. Common bile duct is unremarkable. The visualized portion s of the pancreas are homogenous. The spleen is unremarkable. Kidneys are symmetric and free of hyd ronephrosis. No renal lesions are seen. IMPRESSION: 1. Mild atherosclerotic plaque at the abdominal aorta. No evidence of aneurysm. 2. No cholelithiasis. No renal calculi or hydronephrosis.
== END | disposition home or self-care (01) ==
LOC: RADUSWWP 08:58
PROVIDERS: ATTEND Family Medicine
DX: R10.84 Generalized abdominal pain (principal); K21.9 Gastro-esophageal reflux disease without esophagitis; R11.0 Nausea
CPT/HCPCS: 74018; 76700

== ENCOUNTER → 2020-12-10 | Outpatient (CLI) | payer OTHER ==
--- NOTE | 2020-12-10 17:21 | NM ---
EXAMINATION TYPE: NM hepatobiliary w EF DATE OF EXAM: 12/10/2020 COMPARISON: Correlation ultrasound 07/25/2020 HISTORY: 55-year-old female R32.2, epigastric pain TECHNIQUE: After the intravenous administration of 4.3 mCi Tc 99m Mebrofenin hepatobiliary scintigrap hy is performed. Immediate images post injection. FINDINGS: There is satisfactory initial accumulation of tracer by the liver. The gallbladder is visualized wit hin 8 minutes. The small bowel activity is noted within 40 minutes. At one hour 8 ounces of oral en sure plus is given to mimic CCK and gallbladder ejection fraction is calculated at 72 %, upper limits of the normal range. Therefore there is no scintigraphic evidence of cystic or common bile duct obst ruction to suggest acute cholecystitis or gallbladder dyskinesia. IMPRESSION: No scintigraphic evidence for acute/chronic cholecystitis or biliary dyskinesia.
== END | disposition home or self-care (01) ==
LOC: RADNMMAIN 12:52
PROVIDERS: ATTEND Family Medicine
DX: R10.13 Epigastric pain (principal)
CPT/HCPCS: 78226; A9537

== ENCOUNTER → 2020-12-28 | Outpatient (CLI) | payer OTHER ==
--- NOTE | 2020-12-31 15:04 | MM ---
Reason for exam: screening (asymptomatic). Last mammogram was performed 2 years and 2 months ago. History: Patient is postmenopausal. Family history of breast cancer in paternal grandmother and breast cancer in maternal grandmother. Benign stereotactic core biopsy of the right breast, November 08, 2003. Core biopsy of the right breast. Took hormonal contraceptives for 3 years beginning at age 16. Physical Findings: A clinical breast exam by your physician is recommended on an annual basis and results should be correlated with mammographic findings. MG 3D Screening Mammo W/Cad Bilateral CC and MLO view(s) were taken. Prior study comparison: October 27, 2018, bilateral MG 3d screening mammo w/cad. February 21, 2016, bilateral MG 3d screening mammo w/cad. The breast tissue is heterogeneously dense. This may lower the sensitivity of mammography. Previous mammotome biopsy in the right breast. No significant changes when compared with prior studies. ASSESSMENT: Benign, BI-RAD 2 RECOMMENDATION: Routine screening mammogram of both breasts in 1 year.
== END | disposition home or self-care (01) ==
LOC: RADMAMWWP 13:58
PROVIDERS: ATTEND Obstetrics & Gynecology
DX: Z12.31 Encounter for screening mammogram for malignant neoplasm of breast (principal); Z78.0 Asymptomatic menopausal state; Z80.3 Family history of malignant neoplasm of breast
CPT/HCPCS: 77063; 77067

== ENCOUNTER → 2020-12-28 | Outpatient (CLI) | payer OTHER ==
--- NOTE | 2020-12-28 18:05 | MR ---
EXAMINATION TYPE: MR brain wo/w con DATE OF EXAM: 12/28/2020 4:07 PM COMPARISON: NONE HISTORY: Headaches, pain, lightheaded, tender spots Contrast:5ml gadavist FINDINGS: The ventricles, basal cisterns and sulci overlying the cerebral convexities are minimally enlarged. There is evidence of mild periventricular white matter ischemic demyelination. Remote deep white matter insults are also noted. No acute edema is seen on diffusion weighted imaging. There is no evidence for midline shift or mass effect. Acute intracranial hemorrhage or extra-axial collection is not evident. The paranasal sinuses and mastoid air cells are well-aerated. IMPRESSION: Age-related atrophic and chronic small vessel ischemic change. No acute intracranial process at this time.
== END | disposition home or self-care (01) ==
LOC: RADMRIMAIN 14:40
PROVIDERS: ATTEND Family Medicine
DX: I67.82 Cerebral ischemia (principal); G31.9 Degenerative disease of nervous system, unspecified
CPT/HCPCS: 70553; A9585

== ENCOUNTER → 2021-02-23 | Outpatient (CLI) | payer OTHER ==
[2021-02-23 17:54] LABS: Basophils # (A) 0.05 X 10*3/uL (0.00-0.10); Eosinophils % (A) 1.9 %; HCT 41.8 % (37.2-46.3); HGB 13.5 g/dL (12.0-15.0); Lymphocytes % (A) 31.1 %; MCH 32.7 pg (27.0-32.0); MCHC 32.3 g/dL (32.0-37.0); MCV 101.2 fL (80.0-97.0); Mean Platelet Volume 9.2 fL (9.5-12.2); Monocytes # (A) 0.42 X 10*3/uL (0.20-1.00); Monocytes % (A) 8.2 %; Neutrophils # (A) 2.96 X 10*3/uL (1.80-7.70); Neutrophils % (A) 57.6 %; Platelet Count 295 X 10*3/uL (140-440); RBC 4.13 X 10*6/uL (4.10-5.20); RDW 12.6 % (11.5-14.5); WBC 5.14 X 10*3/uL (4.50-10.00)
[2021-02-23 19:38] LABS: African American GFR (CKD) 93.2 (60.0-200.0); Albumin 4.9 g/dL (3.8-4.9); Albumin/Globulin Ratio 1.91 (1.60-3.17); Anion Gap 14.1 mmol/L (10.00-18.00); BUN/Creat Ratio 9.15 Ratio (12.00-20.00); Blood Urea Nitrogen 7.4 mg/dL (9.0-27.0); Calcium 9.9 mg/dL (8.7-10.3); Carbon Dioxide 23.4 mmol/L (20.0-27.5); Globulin 2.6 g/dL (1.6-3.3); Non-African American GFR(CKD) 80.4 (60.0-200.0); Total Bilirubin 0.4 mg/dL (0.30-1.20); Total Protein 7.5 g/dL (6.2-8.2)
== END | disposition home or self-care (01) ==
LOC: LABWHC1 11:43
PROVIDERS: ATTEND Physician Assistant
DX: R06.00 Dyspnea, unspecified (principal); R09.3 Abnormal sputum
CPT/HCPCS: 36415; 80053; 83880; 85025; 86738

== ENCOUNTER → 2021-03-21 | Outpatient (CLI) | payer OTHER ==
--- NOTE | 2021-03-21 13:10 | US ---
EXAMINATION TYPE: US venous doppler duplex LE BI DATE OF EXAM: 03/21/2021 10:13 AM COMPARISON: 10/06/2019 CLINICAL HISTORY: 55-year-old female M79.662, M79.661 PAIN IN LT AND RT LOWER LIMB. SIDE PERFORMED: Bilateral TECHNIQUE: The lower extremity deep venous system is examined utilizing real time linear array sonog agueda with graded compression, doppler sonography and color-flow sonography. FINDINGS: VESSELS IMAGED: Common Femoral Vein Deep Femoral Vein Greater Saphenous Vein * Femoral Vein Popliteal Vein Small Saphenous Vein * Proximal Calf Veins (* superficial vessels) Right Leg: Negative for DVT Left Leg: Negative for DVT IMPRESSION: No evidence for DVT within the bilateral lower extremities imaged from the groin to the upper calves.
== END | disposition home or self-care (01) ==
LOC: RADUSWWP 09:44
PROVIDERS: ATTEND Internal Medicine Hematology & Oncology
DX: M79.662 Pain in left lower leg (principal); M79.661 Pain in right lower leg
CPT/HCPCS: 93970

== ENCOUNTER → 2021-03-22 | Outpatient (CLI) | payer OTHER ==
--- NOTE | 2021-03-22 11:07 | CT ---
EXAMINATION TYPE: CT angio chest DATE OF EXAM: 03/22/2021 COMPARISON: 04/25/2020 HISTORY: 55-year-old female R07.9, Chest pain, Tachycardia. TECHNIQUE: Contiguous axial scanning of the chest performed with IV Contrast, patient injected with 7 1 mL of Isovue 370. Delayed coronal and sagittal MIP reconstructions performed. CT DLP: 109.0 mGycm Automated exposure control for dose reduction was used. FINDINGS: Right anterior chest wall injection port. Catheter tip near the cavoatrial junction. Heart normal size without pericardial effusion. No flattening of the interventricular septum or reflu x of contrast into the hepatic veins. Aorta normal caliber with a conventional vessel branching anatomy. Mild arthroscopic narrowing at the origin of the left common carotid artery. Mild atherosclerotic changes at the great vessel origins. Satisfactory opacification of the pulmonary canal system without evidence for pulmonary embolus. No thoracic lymphadenopathy by CT size criteria. Biapical pleural-parenchymal scarring. Minimal emphysematous change. Mild diffuse bronchial wall thic kening. Mild dependent atelectasis in the lower lungs. Some strandy atelectasis in the inferior lingu la. No consolidation or pleural effusion. Unchanged minimal subpleural reticular change in the upper lungs suggesting interstitial scarring, unchanged from prior. Visualized upper abdomen shows no gross abnormality. Bones: Mild degenerative disc disease midthoracic spine. No osseous destructive process. IMPRESSION: 1. NO EVIDENCE FOR PULMONARY EMBOLUS. 2. COPD WITH MILD EMPHYSEMA. 3. RIGHT ANTERIOR CHEST WALL INJECTION PORT. CORRELATE TO THE REASON FOR THE INDWELLING CATHETER. 4. STABLE BIAPICAL PLEURAL PARENCHYMAL SCARRING. NO ACUTE PULMONARY PROCESS.
== END | disposition home or self-care (01) ==
LOC: RADCTMAIN 08:49
PROVIDERS: ATTEND Internal Medicine Hematology & Oncology
DX: J43.9 Emphysema, unspecified (principal); R91.8 Other nonspecific abnormal finding of lung field
CPT/HCPCS: 71275; Q9967

== ENCOUNTER → 2021-04-08 | Outpatient (CLI) | payer OTHER ==
--- NOTE | 2021-04-08 16:18 | XR ---
EXAMINATION TYPE: XR chest 2V DATE OF EXAM: 04/08/2021 COMPARISON: 10/31/2019 HISTORY: 55-year-old female pneumonia TECHNIQUE: Frontal and lateral views FINDINGS: Heart normal size. Aorta and pulmonary vasculature within normal limits. Mild interstitial prominence . Hyperinflation. No consolidation or pleural effusion seen. Right anterior chest wall injection port with catheter tip at the lower SVC. IMPRESSION: COPD. Given interstitial prominence, correlate to exclude superimposed acute bronchitis. No focal inf iltrate is seen.
[2021-04-08 22:40] LABS: Basophils # (A) 0.08 X 10*3/uL (0.00-0.10); Basophils % (A) 1.5 %; Eosinophils # (A) 0.07 X 10*3/uL (0.04-0.35); Eosinophils % (A) 1.3 %; HCT 42.6 % (37.2-46.3); HGB 14.3 g/dL (12.0-15.0); Lymphocytes % (A) 34.2 %; MCH 33.2 pg (27.0-32.0); MCHC 33.6 g/dL (32.0-37.0); MCV 98.8 fL (80.0-97.0); Mean Platelet Volume 9.3 fL (9.5-12.2); Monocytes # (A) 0.31 X 10*3/uL (0.20-1.00); Monocytes % (A) 5.9 %; Neutrophils # (A) 2.99 X 10*3/uL (1.80-7.70); Neutrophils % (A) 56.9 %; Platelet Count 290 X 10*3/uL (140-440); RBC 4.31 X 10*6/uL (4.10-5.20); RDW 12.1 % (11.5-14.5); WBC 5.26 X 10*3/uL (4.50-10.00)
[2021-04-08 22:56] LABS: African American GFR (CKD) 90.9 (60.0-200.0); BUN/Creat Ratio 10.52 Ratio (12.00-20.00); Blood Urea Nitrogen 8.7 mg/dL (9.0-27.0); Calcium 10.1 mg/dL (8.7-10.3); Carbon Dioxide 24.8 mmol/L (20.0-27.5); Chloride 101 mmol/L (96-109); Glucose 94 mg/dL (70-110); Non-African American GFR(CKD) 78.4 (60.0-200.0); Potassium 4.3 mmol/L (3.5-5.5); Sodium 137 mmol/L (135-145)
[2021-04-08 23:11] LABS: C Reactive Protein <0.30 mg/dL (0.00-0.80)
== END | disposition home or self-care (01) ==
LOC: RADXRMAIN 14:08
PROVIDERS: ATTEND Internal Medicine Infectious Disease
DX: J44.9 Chronic obstructive pulmonary disease, unspecified (principal); J18.9 Pneumonia, unspecified organism
CPT/HCPCS: 71046; 80048; 84145; 85025; 86140

== ENCOUNTER → 2021-12-19 | Outpatient (CLI) | payer OTHER ==
--- NOTE | 2021-12-19 15:31 | CT ---
EXAMINATION: CT CHEST, ABDOMEN WITH IV CONTRAST DATE OF EXAMINATION: 12/19/2021. COMPARISON: CTA chest on 03/22/2021 CT abdomen and pelvis on 05/20/2019. INDICATION: Hemoptysis. PROCEDURE: Axial CT of the chest and abdomen was performed following the intravenous administration of 70 ml Isovue 300. Coronal and sagittal reformats were performed. CT dose lowering techniques were used, to include: automated exposure control, adjustment for patient size, and/or use of iterative r econstruction. FINDINGS: CHEST: CHEST WALL: There is a right-sided Mediport with the tip in the superior vena cava. Mediastinum and Leah: There is no axillary, mediastinal or hilar lymphadenopathy. Pleural and Pericardial spaces: There are no pleural or pericardial effusions. Cardiovascular: The thoracic aorta is normal in size without evidence of aneurysm or dissection. Ther e are mild patchy coronary calcifications. Pulmonary Artery: There are no central pulmonary arterial filling defects. Lung Parenchyma and Airways: The lungs are clear. ABDOMEN: Liver and Biliary system: Normal. Adrenal glands: Normal. Kidneys and ureters: Normal. Spleen: Normal. Pancreas: Normal. Gallbladder: Normal. Lymph nodes, Peritoneum and mesentery: There is no mesenteric or retroperitoneal lymphadenopathy. Gastrointestinal tract: There are no dilated loops of bowel or free intraperitoneal air. . An effus ion is not seen. Aorta/IVC: There is mild vascular location throughout the abdominal aorta without evidence of aneur ysmal dilation or dissection.. IVC normal. Abdominal wall: Normal. BONES: There are no osseous destructive lesions.. ADDITIONAL SIGNIFICANT FINDINGS: None. IMPRESSION: No acute process within the chest or abdomen.
== END | disposition home or self-care (01) ==
LOC: RADCTMAIN 13:46
PROVIDERS: ATTEND Internal Medicine
DX: R04.2 Hemoptysis (principal)
CPT/HCPCS: 71260; 74160; Q9967 ×2

== ENCOUNTER → 2022-03-18 | Outpatient (CLI) | payer OTHER ==
--- NOTE | 2022-03-18 16:34 | CT ---
EXAMINATION TYPE: CT soft tissue neck w con CT DLP: 357.0 mGycm, Automated exposure control for dose reduction was used. DATE OF EXAM: 03/18/2022 4:27 PM COMPARISON: CT soft tissue neck 06/20/2014. CLINICAL INDICATION:Female, 56 years old with history of R04.2 hemoptysis R22.1 left neck mass; TECHNIQUE: Standard enhanced CT of the neck following intravenous administration of 80 cc of Isovue 3 00. Axial sections with coronal and sagittal reformats were obtained. FINDINGS: Dental amalgam creates streaky artifact limiting evaluation. Brain: Visualized portions are grossly unremarkable. Orbits: The ocular lenses are surgically absent. Sinuses: Grossly unremarkable. Suprahyoid Neck: The oropharynx, oral cavity, parapharyngeal and retropharyngeal spaces are clear and symmetric. The nasopharynx is unremarkable. Infrahyoid Neck: The larynx, hypopharynx, and supraglottic area are clear and symmetric. Parotid Glands: Unremarkable. Submandibular Glands: Unremarkable. Musculoskeletal: No acute osseous pathology. No aggressive osseous lesions. Lymph nodes: No pathologically enlarged lymph nodes. Vascular structures: Minimal atherosclerotic calcifications of the internal carotid arteries. Thoracic Inlet/airway: Airway is patent. Biapical pleural parenchymal scarring. Right chest wall Medi port catheter. Soft tissues/Thyroid: Thyroid and remainder of the soft tissues are unremarkable. Other: none. IMPRESSION No suspicious mass or adenopathy present.
== END | disposition home or self-care (01) ==
LOC: RADCTMAIN 15:52
PROVIDERS: ATTEND Otolaryngology
DX: R04.2 Hemoptysis (principal); R22.1 Localized swelling, mass and lump, neck; R07.0 Pain in throat; R05.9 Cough, unspecified
CPT/HCPCS: 70491; Q9967

== ENCOUNTER → 2022-03-18 | Outpatient (CLI) | payer OTHER ==
--- NOTE | 2022-03-19 10:53 | MM ---
Reason for Exam: Screening (asymptomatic). Last mammogram was performed 1 year(s) and 3 month(s) ago. Patient History: Menarche at age 8. First Full-Term at age 21. Hysterectomy at age 33. Postmenopausal. Hormonal Contraceptives for 3 years from age 16 until age 24. Core Biopsy on the Right side. 11/08/2003, Benign Stereotactic Core Biopsy on the right side. Maternal grandmother had breast cancer. Risk Values: [place] 5 year model risk: 2.0%. NCI Lifetime model risk: 11.1%. Prior Study Comparison: 02/21/2016 Bilateral Screening Mammogram, [facility]. 10/27/2018 Bilateral Screening Mammogram, [facility]. 12/28/2020 Bilateral Screening Mammogram, [facility]. Tissue Density: The breast tissue is heterogeneously dense. This may lower the sensitivity of mammography. Findings: Analyzed By CAD. Pattern is stable. Benign calcification within the left breast. A core marker is within the right breast. No suspicious groups of microcalcifications, spiculated or lobular masses, architectural distortion or other secondary signs of malignancy are mammographically apparent. Overall Assessment: Benign, BI-RAD 2 Management: Screening Mammogram of both breasts in 1 year. A negative mammogram report should not preclude additional follow up of suspicious palpable abnormalities. Patient should continue monthly self breast exam. A clinical breast exam by your physician is recommended on an annual basis and results should be correlated with mammographic findings. Electronically signed and approved by: Ananth Nieves D.O. Radiologis
== END | disposition home or self-care (01) ==
LOC: RADMAMWWP 15:24
PROVIDERS: ATTEND Obstetrics & Gynecology
DX: Z12.31 Encounter for screening mammogram for malignant neoplasm of breast (principal); Z78.0 Asymptomatic menopausal state; Z80.3 Family history of malignant neoplasm of breast; Z98.890 Other specified postprocedural states
CPT/HCPCS: 77063; 77067

== ENCOUNTER → 2022-07-01 | Outpatient (CLI) | payer OTHER ==
[2022-07-02 02:06] LABS: Basophils # (A) 0.08 X 10*3/uL (0.00-0.10); Basophils % (A) 1.2 %; Eosinophils # (A) 0.11 X 10*3/uL (0.04-0.35); Eosinophils % (A) 1.6 %; HCT 44.3 % (37.2-46.3); HGB 14.7 g/dL (12.0-15.0); Immature Grans, Automated 0.3 %; Lymphocytes % (A) 33.8 %; MCH 33.1 pg (27.0-32.0); MCHC 33.2 g/dL (32.0-37.0); MCV 99.8 fL (80.0-97.0); Mean Platelet Volume 9.4 fL (9.5-12.2); Monocytes % (A) 5.9 %; NRBC Per 100 WBC 0 /100 WBCS (0.0-0.0); Neutrophils % (A) 57.2 %; Platelet Count 300 X 10*3/uL (140-440); RBC 4.44 X 10*6/uL (4.10-5.20); RDW 12.4 % (11.5-14.5); WBC 6.81 X 10*3/uL (4.50-10.00)
[2022-07-02 02:14] LABS: % Iron Saturation 26.91 (12.00-45.00); ALT 16 U/L (8-44); AST 25 U/L (13-35); African American GFR (CKD) 89.6 (60.0-200.0); Albumin 4.9 g/dL (3.8-4.9); Albumin/Globulin Ratio 1.59 (1.60-3.17); Alkaline Phosphatase 89 U/L (41-126); BUN/Creat Ratio 16.31 Ratio (12.00-20.00); Blood Urea Nitrogen 13.6 mg/dL (9.0-27.0); Carbon Dioxide 25.7 mmol/L (20.0-27.5); Chloride 100 mmol/L (96-109); Chol/HDL Ratio 2.96 Ratio; Ferritin 88.5 ng/mL (10.0-291.0); Globulin 3.1 g/dL (1.6-3.3); Glucose 81 mg/dL (70-110); Iron 110 ug/dL (50-170); LDL Cholesterol,Calculated 117.9 mg/dL (0.0-131.0); Non-African American GFR(CKD) 77.3 (60.0-200.0); Sodium 138 mmol/L (135-145); Total Iron Binding Capacity 409 ug/dL (228-460)
== END | disposition home or self-care (01) ==
LOC: LABWHC1 15:31
PROVIDERS: ATTEND Internal Medicine
DX: D83.9 Common variable immunodeficiency, unspecified (principal); E78.2 Mixed hyperlipidemia; D50.0 Iron deficiency anemia secondary to blood loss (chronic); J30.89 Other allergic rhinitis; J44.9 Chronic obstructive pulmonary disease, unspecified
CPT/HCPCS: 36415; 80053; 80061; 82728; 83036; 83540; 83550; 84439; 84443; 85025

== ENCOUNTER → 2022-10-31 | Outpatient (CLI) | payer OTHER ==
--- NOTE | 2022-10-31 21:47 | BD ---
EXAMINATION TYPE: Axial Bone Density DATE OF EXAM: 10/31/2022 CLINICAL HISTORY: 57 years old Female. ICD-10 CODE: M85.851 osteopenia of right hip Height: 61" Weight: 110.7 FRAX RISK QUESTIONS: Alcohol (3 or more units per day): No Family History (Parent hip fracture): No Glucocorticoids (More than 3mos): No (Ex: prednisone, prednisolone, methylprednisolone, dexamethasone, and hydrocortisone). History of Fracture in Adulthood: No Secondary Osteoporosis: 1. Type 1 Diabetes: No 2. Hyperthyroidism: No 3. Menopause before 45: Yes 4. Malnutrition: No 5. Chronic liver disease: No Rheumatoid Arthritis: No Current Tobacco Use: Yes RISK FACTORS HISTORY OF: Hip Fracture (Right/Left): No Spine Fracture: No History of Wrist Fracture: No Surgery to Spine/Hip(right/left)/Wrist (right/left): No Family History of Osteoporosis: No Active: Yes Diet low in dairy products/other sources of calcium: Yes Postmenopausal woman: Yes Lost more than 2 inches in height since high school: No Frequent falls: No Poor Health: No Hyperparathyroidism: No Adrenal Insufficiency: No MEDICATIONS: Prednisone or other steroids: No Thyroid Medications: No Osteoporosis Medications: No Additional Medications: Floven, flonase, venalin, heart meds, panto-something for stomach, IVIG infus ion Additional History: None EXAM MEASUREMENTS: Bone mineral densitometry was performed using the Tuee System. Bone mineral density as measured about the Lumbar spine is: ----- L1-L4(G/cm2): 0.962 T Score Values are as follows: ----- L1: -2.1 ----- L2: -2.4 ----- L3: -1.8 ----- L4: -1.2 ----- L1-L4: -1.8 Z Score Values are as follows: ----- L1: -0.5 ----- L2: -0.8 ----- L3: -0.2 ----- L4: 0.5 ----- L1-L4: -0.2 Bone mineral density has: decreased -7.2% since study of: 11/02/2018 Bone mineral density about the R hip (g/cm2): 0.804 Bone mineral density about the L hip (g/cm2): 0.812 T Score values are as follows: -----R Neck: -2.0 -----L Neck: -2.2 -----R Total: -1.6 -----L Total: -1.6 Z Score values are as follows: -----R Neck: -0.6 -----L Neck: -0.4 -----R Total: -0.4 -----L Total: -0.3 Bone mineral density has: decreased -8.1% since study of: 11/02/2018 FRAX%s: The graph provided illustrates a 9.5% chance for a major osteoporotic fx and a 2.4% chance fo r the hips probability for fx in 10 years time. IMPRESSION: Osteopenia (T Score between -2.5 and -1). There is slightly increased risk of fracture and the patient may be considered for treatment. Re-Screen 2-5 years. NOTE: T-SCORE=SD OF THE YOUNG ADULT MEAN.
--- NOTE | 2022-11-02 13:47 | CTL ---
EXAMINATION TYPE: CT Low Dose Lung DATE OF EXAM ORDERED: 10/31/2022 HISTORY: 57-year-old female Z12.12, F17.210. Current smoker with 30 pack-year history. Lung cancer sc reening CT DLP: 46.[address] CTDI: 1.2 mGy Automated exposure control for dose reduction was used. SCREENING VISIT: Baseline COMPARISON: 12/19/2021 CT chest/abdomen TECHNIQUE: Low dose computed tomography scan was performed through the chest with coronal and sagitta l reconstructions. CT DIAGNOSTIC QUALITY: Satisfactory FINDINGS: Right anterior chest wall injection port with catheter tip at the cavoatrial junction. Heart normal size without pericardial effusion. Mild LAD and circumflex coronary artery calcification s are present. Aorta normal caliber with mild atherosclerotic arch calcifications and conventional arch vessel branc ortega anatomy. No thoracic lymphadenopathy by CT size criteria. Biapical pleural-parenchymal scarring. Mild diffuse bronchial wall thickening. Minimal emphysematous change. No consolidation or pleural effusion. * Tiny calcified granuloma posterior right lower lobe, axial image 232. * 3 mm right upper lobe pulmonary nodule, axial image 93. Visualized upper abdomen shows no gross abnormality. There is retroaortic left renal vein. Bones: Accentuated mid thoracic kyphosis. IMPRESSION: 1. Lung RADS 2, benign. A couple 3 mm pulmonary nodules on the right, one of which represents a tiny calcific granuloma. 2. Minimal emphysematous change. Recommend smoking cessation. CT LUNG RAD AND CT CHEST RECOMMENDATION: Lung-Rad 2 Benign Appearance or Behavior: Continue annual sc reening with LDCT in 12 months. S Modifier (other clinically significant findings): None
== END | disposition home or self-care (01) ==
LOC: RADBDWWP 15:01
PROVIDERS: ATTEND Internal Medicine
DX: Z12.2 Encounter for screening for malignant neoplasm of respiratory organs (principal); M85.89 Other specified disorders of bone density and structure, multiple sites; J43.2 Centrilobular emphysema; R91.8 Other nonspecific abnormal finding of lung field; F17.210 Nicotine dependence, cigarettes, uncomplicated; Z78.0 Asymptomatic menopausal state
CPT/HCPCS: 71271; 77080

== ENCOUNTER 2023-06-19 12:01 | Emergency (ER) | payer OTHER ==
[2023-06-19 12:16] VITALS: TEMP 98.7
--- NOTE | 2023-06-19 13:01 | ED ---
General Adult HPI - General Chief complaint: Recheck/Abnormal Lab/Rx Stated complaint: dehydration Time Seen by Provider: 06/19/23 12:30 Source: patient, RN notes reviewed Mode of arrival: ambulatory Limitations: no limitations - History of Present Illness Initial comments: 57-year-old female presenting with diarrhea for 2 weeks. States that she has chavez d loose stool for 2 weeks with generalized bodyaches, chills, and abdominal pain. Abdominal pain is epigastric and worsens with oral intake. Patient has not vomited but complains of nausea. Denies blood in stool or black stools. She was sent here by her PCP for IV fluids due to dehydration. She states she took an antibiotic for a UTI 2 weeks ago before the symptoms began. Denies recent travel. States she takes a monthly infusion for immunosuppression, however states her physicians do not know why she is immunosuppressed. Denies history of abdominal surgeries or blood thinners - Related Data Home Medications Medication Instructions Recorded Confirmed Albuterol Sulfate [Ventolin HFA] 1 - 2 puff INHALATION RT-Q4H PRN 03/07/14 04/18/21 Fluticasone Propionate [Flovent 2 puff INHALATION RT-HS 03/07/14 04/18/21 Hfa 220 mcg] Immune Globulin (Flebogamma) 35 gm IV Q28D 01/06/17 04/18/21 [Flebogamma Dif 10%] Acetaminophen [Tylenol Extra 500 - 1,000 mg PO DIRECTED PRN 04/18/21 04/18/21 Strength] Dextroamphetamine/Amphetamine 10 mg PO DAILY 04/18/21 04/18/21 [Adderall] Fluticasone Propionate [Flonase 2 spray EA NOSTRIL HS 04/18/21 04/18/21 Allergy Relief] Pantoprazole [Protonix] 40 mg PO DAILY 04/18/21 04/18/21 Previous Rx's Medication Instructions Recorded Metoprolol Succinate (ER) [Toprol 25 mg PO DAILY #30 tab.er.24h 01/17/18 XL] Ondansetron Odt [Zofran Odt] 4 mg PO Q8HR PRN #10 tab 06/19/23 Allergies Allergy/AdvReac Type Severity Reaction Status Date / Time amoxicillin [From Augmentin] AdvReac Nausea & Verified 06/19/23 12:10 Vomiting aspirin AdvReac stomach Verified 06/19/23 12:10 upset clavulanic acid AdvReac Nausea & Verified 06/19/23 12:10 [From Augmentin] Vomiting nitrofurantoin AdvReac Nausea & Verified 06/19/23 12:10 [From Macrobid] Vomiting nitrofurantoin AdvReac Nausea & Verified 06/19/23 12:10 macrocrystalline Vomiting [From Macrobid] Review of Systems ROS Statement: Those systems with pertinent positive or pertinent negative responses have been documented in the HPI. ROS Other: All systems not noted in ROS Statement are negative. Past Medical History Past Medical History: Asthma Additional Past Medical History / Comment(s): sensitiy between ribs and reflux,IBS,ALLERGIES, HEADACHES. FREQUENT SORES IN HER MOUTH., STATES PAIN IN NECK AND FEET,Common Variable Immune Deficiency,steroids Dec 2016 History of Any Multi-Drug Resistant Organisms: None Reported Past Surgical History: Hysterectomy, Tubal Ligation Additional Past Surgical History / Comment(s): SINUS SURG X2 , EGD , COLONOSCOPY,goldie cataracts Past Anesthesia/Blood Transfusion Reactions: Motion Sickness Past Psychological History: ADD/ADHD, Anxiety, Depression Smoking Status: Former smoker Past Alcohol Use History: Occasional Past Drug Use History: None Reported - Past Family History Brother(s) Family Medical History: Cancer Additional Family Medical History / Comment(s): lung - small cell. cystic fibrosis Father Family Medical History: Vascular Disorder General Exam Limitations: no limitations General appearance: alert, in no apparent distress ENT exam: Present: normal exam, mucous membranes moist Respiratory exam: Present: normal lung sounds bilaterally. Absent: respiratory distress, wheezes, rales, rhonchi, stridor Cardiovascular Exam: Present: regular rate, normal rhythm, normal heart sounds. Absent: systolic murmur, diastolic murmur, rubs, gallop, clicks GI/Abdominal exam: Present: soft, normal bowel sounds. Absent: distended, tenderness, guarding, rebound, rigid Back exam: Absent: CVA tenderness (R), CVA tenderness (L), rash noted Neurological exam: Present: alert, oriented X3, CN II-XII intact Skin exam: Present: warm, dry, intact, normal color. Absent: rash Course Vital Signs 06/19/23 12:08 Temperature 98.7 F Pulse Rate 100 Respiratory 20 Rate Blood Pressure 139/79 O2 Sat by Pulse 100 Oximetry Medical Decision Making - Medical Decision Making Was pt. sent in by a medical professional or institution (KEYON Liu, DETAIL ASSEMBLER, urgent care, hospital, or fci...) When possible be specific @ -Patient was sent by primary care physician for dehydration Did you speak to anyone other than the patient for history (EMS, parent, family, police, friend...)? What history was obtained from this source @ -No Did you review nursing and triage notes (agree or disagree)? Why? @ -I reviewed and agree with nursing and triage notes Were old charts reviewed (outside hosp., previous admission, EMS record, old EKG, old radiological studies, urgent care reports/EKG's, fci records)? Report findings @ -No old charts were reviewed Differential Diagnosis (chest pain, altered mental status, abdominal pain women, abdominal pain men, vaginal bleeding, weakness, fever, dyspnea, syncope, headache, dizziness, GI bleed, back pain, seizure, CVA, palpatations, mental he alth, musculoskeletal)? @ -Differential Abdominal Pain Women: Appendicitis, Cholecystitis, diverticulosis, ischemic bowel, pancreatitis, hepatitis, UTI, gastroenteritis, AAA, incarcerated hernia, bowel obstruction, constipation, inflammatory bowel, hepatitis, peptic ulcer disease, splenic infarction, perforated viscus, vulvitis, ovarian torsion, PID, kidney stone, this is not meant to be an all-inclusive list EKG interpreted by me (3pts min.). @ -None X-rays interpreted by me (1pt min.). @ -None done CT interpreted by me (1pt min.). @ -None done U/S interpreted by me (1pt. min.). @ -None done What testing was considered but not performed or refused? (CT, X-rays, U/S, labs)? Why? @ -CT of abdomen/pelvis not indicated at this time due to abdomen is nontender, patient is afebrile, patient is in stable condition What meds were considered but not given or refused? Why? @ -None Did you discuss the management of the patient with other professionals (professionals i.e. KEYON Liu, DETAIL ASSEMBLER, lab, RT, psych nurse, social organization professor, senior software project manager, teacher, emergency communications officer, case maker)? Give summary @ -No Was smoking cessation discussed for >3mins.? @ -No Was critical care preformed (if so, how long)? @ -No Were there social determinants of health that impacted care today? How? (Homelessness, low income, unemployed, alcoholism, drug addiction, transportation, low edu. Level, literacy, decrease access to med. care, fdc, rehab)? @ -No Was there de-escalation of care discussed even if they declined (Discuss DNR or withdrawal of care, Hospice)? DNR status @ -No What co-morbidities impacted this encounter? (DM, HTN, Smoking, COPD, CAD, Cancer, CVA, ARF, Chemo, Hep., AIDS, mental health diagnosis, sleep apnea, morbid obesity)? @ -None Was patient admitted / discharged? Hospital course, mention meds given and route, prescriptions, significant lab abnormalities, going to OR and other pertinent info. @ -Patient was discharged. Patient was seen and evaluated for diarrhea x 2 weeks. There was no abdominal tenderness upon examination. Lab work was unremarkable. Urine was negative for ketones and protein. Patient was given fluids and Zofran and symptoms improved upon discharge. Discussed close follow- up with primary care physician for further evaluation if symptoms persist. patient was discharged in stable condition. Case discussed with Dr. Sky. Undiagnosed new problem with uncertain prognosis? @ -No Drug Therapy requiring intensive monitoring for toxicity (Heparin, Nitro, Insulin, Cardizem)? @ -No Were any procedures done? @ -No Diagnosis/symptom? @ -Gastroenteritis Acute, or Chronic, or Acute on Chronic? @ -Acute Uncomplicated (without systemic symptoms) or Complicated (systemic symptoms)? @ -Uncomplicated Side effects of treatment? @ -No Exacerbation, Progression, or Severe Exacerbation? @ -No Poses a threat to life or bodily function? How? (Chest pain, USA, PA, pneumonia, PE, COPD, DKA, ARF, appy, cholecystitis, CVA, Diverticulitis, Homicidal, Suicidal, threat to staff... and all critical care pts) @ -No - Lab Data Result diagrams: 06/19/23 12:42 06/19/23 12:42 Lab Results 06/19/23 06/19/23 06/19/23 Range/Units 12:42 12:42 12:42 WBC 4.5 (3.8-10.6) k/uL RBC 4.27 (3.80-5.40) m/uL Hgb 14.0 (11.4-16.0) gm/dL Hct 41.6 (34.0-46.0) % MCV 97.5 (80.0-100.0) fL MCH 32.8 (25.0-35.0) pg MCHC 33.7 (31.0-37.0) g/dL RDW 11.8 (11.5-15.5) % Plt Count 267 (150-450) k/uL MPV 7.0 Neutrophils % 63 % Lymphocytes % 28 % Monocytes % 6 % Eosinophils % 1 % Basophils % 1 % Neutrophils # 2.8 (1.3-7.7) k/uL Lymphocytes # 1.3 (1.0-4.8) k/uL Monocytes # 0.3 (0-1.0) k/uL Eosinophils # 0.0 (0-0.7) k/uL Basophils # 0.1 (0-0.2) k/uL Sodium 136 L (137-145) mmol/L Potassium 4.2 (3.5-5.1) mmol/L Chloride 102 (98-107) mmol/L Carbon Dioxide 27 (22-30) mmol/L Anion Gap 7 mmol/L BUN 8 (7-17) mg/dL Creatinine 0.78 (0.52-1.04) mg/dL Est GFR (CKD-EPI)AfAm >90 (>60 ml/min/1.73 sqM) Est GFR (CKD-EPI)NonAf 84 (>60 ml/min/1.73 sqM) Glucose 110 H (74-99) mg/dL Calcium 9.7 (8.4-10.2) mg/dL Total Bilirubin 0.9 (0.2-1.3) mg/dL AST 29 (14-36) U/L ALT 17 (4-34) U/L Alkaline Phosphatase 85 (38-126) U/L Total Protein 8.3 H (6.3-8.2) g/dL Albumin 4.6 (3.5-5.0) g/dL Lipase 105 (23-300) U/L Urine Color Colorless Urine Appearance Clear (Clear) Urine pH 5.5 (5.0-8.0) Ur Specific Biggs 1.010 (1.001-1.035) Urine Protein Negative (Negative) Urine Glucose (UA) Negative (Negative) Urine Ketones Negative (Negative) Urine Blood Moderate H (Negative) Urine Nitrite Negative (Negative) Urine Bilirubin Negative (Negative) Urine Urobilinogen <2.0 (<2.0) mg/dL Ur Leukocyte Esterase Negative (Negative) Urine RBC 6 H (0-5) /hpf Urine WBC <1 (0-5) /hpf Urine Mucus Rare H (None) /hpf Disposition Clinical Impression: Gastroenteritis Disposition: HOME SELF-CARE Condition: Stable Additional Instructions: Please return to the Emergency Department if symptoms worsen or any other concerns. Prescriptions: Ondansetron Odt [Zofran Odt] 4 mg PO Q8HR PRN #10 tab PRN Reason: Nausea Is patient prescribed a controlled substance at d/c from ED?: No Referrals: Rosalee Georges MD [Primary Care Provider] - 1-2 days Time of Disposition: 14:48
[2023-06-19] MEDS: ONDANSETRON 4 MG/2 ML VIAL IVP STA (13:15)
[2023-06-19] MEDS: SODIUM CHLORIDE 0.9% 500 ML 500 ML IV STA (13:16)
[2023-06-19 13:30] LABS: Basophils # (A) 0.1 k/uL (0-0.2); Basophils % (A) 1 %; Eosinophils % (A) 1 %; HCT 41.6 % (34.0-46.0); Lymphocytes # (A) 1.3 k/uL (1.0-4.8); Lymphocytes % (A) 28 %; MCH 32.8 pg (25.0-35.0); MCHC 33.7 g/dL (31.0-37.0); MCV 97.5 fL (80.0-100.0); Monocytes # (A) 0.3 k/uL (0-1.0); Monocytes % (A) 6 %; Neutrophils # (A) 2.8 k/uL (1.3-7.7); Neutrophils % (A) 63 %; Platelet Count 267 k/uL (150-450); RBC 4.27 m/uL (3.80-5.40); RDW 11.8 % (11.5-15.5); WBC 4.5 k/uL (3.8-10.6)
[2023-06-19 13:32] LABS: Appearance,Urine Clear (Clear); Bilirubin,Urine Negative (Negative); Blood,Urine Moderate (Negative); Color,Urine Colorless; Glucose,Urine (UA) Negative (Negative); Ketones,Urine Negative (Negative); Leukocyte Esterase,Urine Negative (Negative); Mucus,Urine Rare /hpf; Nitrite,Urine Negative (Negative); PH, Urine 5.5 (5.0-8.0); Protein,Urine Negative (Negative); RBC,Urine 6 /hpf (0-5); Urobilinogen,Urine <2.0 mg/dL (<2.0); WBC,Urine <1 /hpf (0-5)
[2023-06-19 13:42] LABS: ALT 17 U/L (4-34); AST 29 U/L (14-36); African American GFR (CKD) >90 (>60 ml/min/1.73 sqM); Albumin 4.6 g/dL (3.5-5.0); Alkaline Phosphatase 85 U/L (38-126); Anion Gap 7 mmol/L; Blood Urea Nitrogen 8 mg/dL (7-17); Calcium 9.7 mg/dL (8.4-10.2); Carbon Dioxide 27 mmol/L (22-30); Chloride 102 mmol/L (98-107); Glucose 110 mg/dL (74-99); Lipase 105 U/L (23-300); Non-African American GFR(CKD) 84 (>60 ml/min/1.73 sqM); Potassium 4.2 mmol/L (3.5-5.1); Sodium 136 mmol/L (137-145); Total Bilirubin 0.9 mg/dL (0.2-1.3); Total Protein 8.3 g/dL (6.3-8.2)
[2023-06-19 15:42] VITALS: BP 130/80; PULSE 86; RESP 16
== END 2023-06-19 15:20 | disposition home or self-care (01) ==
LOC: EC 12:01
DX: K52.9 Noninfective gastroenteritis and colitis, unspecified (principal); Z87.891 Personal history of nicotine dependence; Z88.8 Allergy status to other drugs, medicaments and biological substances; Z88.0 Allergy status to penicillin
CPT/HCPCS: 36415; 80053; 83690; 85025; 81001; 99283; 96374; 96361; J2405

== ENCOUNTER → 2023-08-28 | Outpatient (CLI) | payer OTHER ==
--- NOTE | 2023-08-28 17:32 | CT ---
EXAMINATION TYPE: CT abdomen pelvis wo/w con DATE OF EXAM: 08/28/2023 COMPARISON: 05/20/2019 HISTORY: Diarrhea and constipation. CT DLP: 591.0 mGycm CONTRAST: CT scan of the abdomen and pelvis is performed with Oral Contrast and without and with IV Contrast, p atient injected with 100 ml mL of Isovue 300. FINDINGS: LUNG BASES-: No visible nodule. No infiltrate. LIVER/GB: No calcified gallstones. No space occupying hepatic lesion. Biliary tree is of normal ca liber. PANCREAS: No inflammation. No distinct mass. SPLEEN: No splenic enlargement. No lesion seen. ADRENALS: No nodule. No thickening. KIDNEYS/BLADDER: No hydronephrosis. No nephrolithiasis. No distinct renal mass. Urinary bladder g rossly unremarkable. BOWEL: Normal appendix. Normal bowel caliber. No inflammation. GENITAL ORGANS: Hysterectomy changes. No vaginal cuff mass. No adnexal mass. LYMPH NODES: No greater than 1cm abdominal or pelvic lymph nodes are appreciated. AORTA: No significant abnormality. OSSEOUS STRUCTURES: No significant abnormality is seen. OTHER: No significant additional abnormality is seen. IMPRESSION: 1. No acute process seen to account for the patient's symptoms.
== END | disposition home or self-care (01) ==
LOC: RADCTMAIN 14:32
PROVIDERS: ATTEND Internal Medicine
DX: R19.7 Diarrhea, unspecified (principal); K59.00 Constipation, unspecified
CPT/HCPCS: 74178; Q9967

== ENCOUNTER → 2023-11-04 | Outpatient (CLI) | payer OTHER ==
--- NOTE | 2023-11-04 13:30 | CTL ---
EXAMINATION TYPE: CT Low Dose Lung DATE OF EXAM ORDERED: 11/04/2023 HISTORY: . Lung cancer screening CT DLP: [address] CTDI: 1.6 mGy Automated exposure control for dose reduction was used. SCREENING VISIT: COMPARISON: 10/31/2022 TECHNIQUE: Low dose computed tomography scan was performed through the chest at 1 mm thick sections a nd reconstructed images in multiple planes at 1 mm and [address] DIAGNOSTIC QUALITY: Satisfactory FINDINGS: A calcified granuloma stable. 3 mm upper lobe pulmonary micronodule stable. There is biapical pleural thickening or scarring. Additional multiple subpleural pulmonary micronodul es are seen involving bilateral upper lobes. Diffuse emphysematous changes. No consolidative pneumonia. A right-sided central line stable. Atherosclerotic change aorta. Ascending aorta measures a maximal d imension of 3.4 cm. Moderate to severe coronary artery calcification. Heart size normal. Trace of per icardial fluid. Airways are patent with peribronchial wall thickening which can be related to reactive airway disease or chronic bronchitis\bronchiolitis. Bilateral subsegmental atelectasis or scarring involving the lung bases. There is a small hiatal hernia. Assessment for adenopathy is limited due to a lack of contrast in technique. Grossly no pathologic ad enopathy is suspected.. IMPRESSION: 1. COPD with stable multiple bilateral pulmonary micronodules likely benign. 2. Dense coronary artery calcification. CT LUNG RAD AND CT CHEST RECOMMENDATION: Lung-Rad 2 Benign Appearance or Behavior: Continue annual sc reening with LDCT in 12 months.
--- NOTE | 2023-11-10 12:06 | XR ---
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 Moderate disc/endplate degenerative change C5-C7 levels with disc space narrowing and endplate spondylosis. Degenerative grade 1 anterol isthesis C3-C4 and C4-C5. Multilevel hypertrophic facet and uncovertebral joint arthropathy is presen t. No dynamic subluxations flexion or extension. Note that the cervicothoracic junction remains obscu red by the patient's shoulders and is not assessed. Right anterior chest wall injection port. IMPRESSION: 1. Multilevel hypertrophic facet and uncovertebral joint arthropathy and degenerative grade 1 anterol isthesis C3-C4 and C4-C5. 2. Flexion and extension shows no dynamic subluxation. 3. Moderate disc/endplate change C5-C7 levels.
== END | disposition home or self-care (01) ==
LOC: RADCTMAIN 12:28
PROVIDERS: ATTEND Internal Medicine Critical Care Medicine
DX: Z12.2 Encounter for screening for malignant neoplasm of respiratory organs (principal); F17.210 Nicotine dependence, cigarettes, uncomplicated; M47.812 Spondylosis without myelopathy or radiculopathy, cervical region; J44.9 Chronic obstructive pulmonary disease, unspecified; I25.10 Atherosclerotic heart disease of native coronary artery without angina pectoris; M43.12 Spondylolisthesis, cervical region; M12.9 Arthropathy, unspecified
CPT/HCPCS: 71271; 72052

== ENCOUNTER → 2023-12-08 | Outpatient (CLI) | payer OTHER ==
--- NOTE | 2023-12-09 12:25 | MM ---
Reason for Exam: Screening (asymptomatic). Last mammogram was performed 1 year(s) and 9 month(s) ago. Patient History: Menarche at age 8. First Full-Term at age 21. Hysterectomy at age 33. Postmenopausal. Hormonal Contraceptives for 3 years from age 16 until age 24. Core Biopsy on the Right side. 11/08/2003, Benign Stereotactic Core Biopsy on the right side. Maternal grandmother had breast cancer. Risk Values: Oneyda 5 year model risk: 2.1%. NCI Lifetime model risk: 10.6%. Prior Study Comparison: 10/27/2018 Bilateral Screening Mammogram, [facility]. 12/28/2020 Bilateral Screening Mammogram, [facility]. 03/18/2022 Bilateral MG 3D screening mammo w/cad, [facility]. Tissue Density: The breasts are heterogeneously dense, which may obscure small masses. Findings: Analyzed By CAD. There is no suspicious group of microcalcifications or new suspicious mass in either breast. Overall Assessment: Benign, BI-RAD 2 Management: Screening Mammogram of both breasts in 1 year. . Patient should continue monthly self-breast exams. A clinical breast exam by your physician is recommended on an annual basis. This exam should not preclude additional follow-up of suspicious palpable abnormalities. Note on Oneyda scores and lifetime risk: 1. A Oneyda score greater than 3% is considered moderate risk. If this is the case, consider specialist referral to assess eligibility for a risk reducing agent. 2. If overall lifetime risk for the development of breast cancer is 20% or higher, the patient may qualify for future screening with alternating mammogram and breast MRI. [facility], , 12/09/2023 12:22 PM. Electronically signed and approved by: Jaswinder Salas M.D. Radiologis
== END | disposition home or self-care (01) ==
LOC: RADMAMWWP 14:14
PROVIDERS: ATTEND Internal Medicine
CPT/HCPCS: 77063; 77067

== ENCOUNTER → 2024-06-23 | Outpatient (CLI) | payer OTHER ==
--- NOTE | 2024-06-23 16:09 | XR ---
EXAMINATION TYPE: XR lumbar spine 2 or 3V DATE OF EXAM: 06/23/2024 CLINICAL HISTORY: Lumbar spondylolysis TECHNIQUE: Three views of the lumbar spine are submitted. COMPARISON: CT abdomen and pelvis 08/28/2023, MR T-spine/L-spine 03/12/2015 FINDINGS: There are 5 lumbar type vertebral bodies identified. No acute fracture. Minimal grade 1 anterolisthes is of L4 on L5. Vertebral body heights are within normal limits. Mild multilevel degenerative disc di sease with disc space narrowing and endplate sclerosis. The overlying soft tissue appears unremarkabl e. Atherosclerotic calcification of the aorta. IMPRESSION: 1. No acute fracture or dislocation is seen in the lumbar spine. 2. Mild multilevel degenerative disc disease. [facility], , 06/23/2024 4:07 PM
== END | disposition home or self-care (01) ==
LOC: RADXRMAIN 15:47
PROVIDERS: ATTEND Internal Medicine
DX: M51.369 Other intervertebral disc degeneration, lumbar region without mention of lumbar back pain or lower extremity pain (principal); M47.816 Spondylosis without myelopathy or radiculopathy, lumbar region
CPT/HCPCS: 72100

== ENCOUNTER → 2024-06-28 | Outpatient (CLI) | payer OTHER ==
[2024-06-28 18:27] LABS: Basophils # (A) 0.08 X 10*3/uL (0.00-0.10); Basophils % (A) 1.7 %; Eosinophils # (A) 0.13 X 10*3/uL (0.04-0.35); Eosinophils % (A) 2.7 %; HCT 36.8 % (37.2-46.3); HGB 12.1 g/dL (12.0-15.0); Lymphocytes # (A) 1.72 X 10*3/uL (0.90-5.00); Lymphocytes % (A) 36.2 %; MCH 31.1 pg (27.0-32.0); MCHC 32.9 g/dL (32.0-37.0); MCV 94.6 FL (80.0-97.0); Mean Platelet Volume 9.5 FL (9.5-12.2); Monocytes % (A) 8.4 %; NRBC Per 100 WBC 0 X 10*3/uL (0.00-0.01); Neutrophils # (A) 2.41 X 10*3/uL (1.80-7.70); Neutrophils % (A) 50.8 %; Platelet Count 275 X 10*3/uL (140-440); RBC 3.89 X 10*6/uL (4.10-5.20); RDW 12.7 % (11.5-14.5); WBC 4.75 X 10*3/uL (4.50-10.00)
[2024-06-28 18:38] LABS: BUN/Creat Ratio 10.78 Ratio (12.00-20.00); Blood Urea Nitrogen 9.7 mg/dL (9.0-27.0); Calcium 9.3 mg/dL (8.7-10.3); Carbon Dioxide 24.5 mmol/L (21.6-31.8); Chloride 102 mmol/L (96-109); Glucose 93 mg/dL (70-110); Potassium 4.3 mmol/L (3.5-5.5); Sodium 136 mmol/L (135-145)
== END | disposition home or self-care (01) ==
LOC: LABWHC1 14:19
PROVIDERS: ATTEND Internal Medicine Infectious Disease
DX: Z00.00 Encounter for general adult medical examination without abnormal findings (principal); Z53.9 Procedure and treatment not carried out, unspecified reason
CPT/HCPCS: 36415; 80048; 85025

== ENCOUNTER → 2024-09-28 | Outpatient (CLI) | payer OTHER ==
[~2024-09-28] MED LIST changes: -LACTATED RINGERS 1,000 ML IV SCH; -LIDOCAINE 1% 20 ML VIAL (10MG/ML) FOR IV START INTRADERMA PRN; +SODIUM CHLORIDE 0.9% 250 ML in EMPTY BAG 1 BAG IV PRN
[2024-09-28 10:48] VITALS: RESP 16; TEMP 97
[2024-09-28 11:04] LABS: Basophils # (A) 0.09 10*3/uL (0.00-0.10); Basophils % (A) 1.9 %; Eosinophils # (A) 0.25 10*3/uL (0.04-0.35); Eosinophils % (A) 5.3 %; HCT 36.9 % (37.2-46.3); HGB 12.6 g/dL (12.0-15.0); Lymphocytes # (A) 1.80 10*3/uL (0.90-5.00); Lymphocytes % (A) 38.1 %; MCH 31.2 pg (27.0-32.0); MCHC 34.1 g/dL (32.0-37.0); MCV 91.3 fL (80.0-97.0); Monocytes # (A) 0.42 10*3/uL (0.20-1.00); Monocytes % (A) 8.9 %; Neutrophils # (A) 2.15 10*3/uL (1.80-7.70); Neutrophils % (A) 45.6 %; Platelet Count 264 10*3/uL (140-440); RBC 4.04 10*6/uL (4.10-5.20); RDW 12.4 % (11.5-14.5); WBC 4.72 10*3/uL (4.50-10.00)
[2024-09-28] MEDS: methylPREDNISolone SOD SUCCI 40 MG/ML 1 ML VIAL IV ONE (11:06)
[2024-09-28] MEDS: SODIUM CHLORIDE 0.9% 500 ML 500 ML in EMPTY BAG 1 BAG IV PRN (11:07)
[2024-09-28] MEDS: diphenhydrAMINE 50 MG/ML 1 ML VIAL IVP ONE (11:07)
[2024-09-28] MEDS: IMMUNE GLOBULIN (GAMMAGARD) 20 GM in EMPTY BAG 1 BAG IV ONE (11:09)
[2024-09-28] MEDS: ACETAMINOPHEN TAB 325 MG TAB PO ONE (11:13)
[2024-09-28 11:54] LABS: African American GFR (CKD) 86 (>60 ml/min/1.73 sqM); Anion Gap 12 mmol/L; Blood Urea Nitrogen 11 mg/dL (7-17); Calcium 9.5 mg/dL (8.4-10.2); Carbon Dioxide 22 mmol/L (22-30); Chloride 105 mmol/L (98-107); Glucose 116 mg/dL (74-99); Non-African American GFR(CKD) 75 (>60 ml/min/1.73 sqM); Potassium 4.2 mmol/L (3.5-5.1); Sodium 139 mmol/L (137-145)
[2024-09-28 12:07] VITALS: BP 95/57; PULSE 77
[2024-09-28] MEDS: IMMUNE GLOBULIN (GAMMAGARD) 10 GM in EMPTY BAG 1 BAG IV ONE (13:01)
[2024-09-28] MEDS: IMMUNE GLOBULIN (GAMMAGARD) 5 GM in EMPTY BAG 1 BAG IV ONE (13:49)
== END ==
LOC: PROCWHC3 10:36
PROVIDERS: ATTEND Internal Medicine Infectious Disease
DX: D80.3 Selective deficiency of immunoglobulin G [IgG] subclasses (principal)
CPT/HCPCS: 80048; 82784; 85025; 96365; 96366; 96375